=== PATIENT | male | born 2000 | race Caucasian/White ===

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

== ENCOUNTER 2022-01-13 | Emergency (ER) | payer MEDICAID, SELFPAY ==
[2022-01-13 00:07] VITALS: BP 119/77; PULSE 85; RESP 16; TEMP 36.9; O2SAT 97
--- OUTSIDE RECORDS SUMMARY | 2022-01-13 00:14 | XMS_ITS | Encounter Summary ---
:2000 Author Organization [facility] Address [address] [place] [address] Care Team Providers Name Role Phone Kirsten Allred MD Primary Care Provider Reason for Visit Reason Comments Follow-up here with dad Rudolph Encounter Details Date Type Department Care Team Description 09/27/2015 Office Visit Genetics at [facility] Nikolas Ahn Chromosomal duplication; [facility] MD Marina Anxiety; [facility] ADHD (attention deficit hype ractivity disorder), combined type; [facility] Hypogenesis of corpus callosum [id number] GENETICS & CHILD [phone] DEVELOPMENT [place], [place] [address] Social History Tobacco Use Types Packs/Day Years Used Date Never Smoker Sex Assigned at Date Recorded Not on file documented as of this encounter Last Filed Vital Signs Vital Sign Reading Time Taken Comments Blood Pressure 120/67 09/27/2015 8:51 AM EDT Pulse 109 09/27/2015 8:51 AM EDT Temperature - - Respiratory Rate - - Oxygen Saturation - - Inhaled Oxygen Concentration - - Weight 41.2 kg (90 lb 13.3 oz) 09/27/2015 8:51 AM EDT Height 149.9 cm (4' 11) 09/27/2015 8:51 AM EDT Head Circumference 54.1 cm 09/27/2015 8:51 AM EDT Body Mass Index 18.35 09/27/2015 8:51 AM EDT Body Mass Index Percentile 43.88 % 09/27/2015 8:51 AM ED T Growth Chart: [facility] (Boys, 2-20 Years) documented in this encounter Patient Instructions Patient InstructionsMalathi Lomax LGC - 09/27/2015 9:02 AM EDT Lalo is a 15 y.o. boy referred to Genetics Clinic by KIRSTEN ALLRED MD for evaluation of his abnormalmicroarray. Lalo underwent chromosomal microarray analysis testing as part of his diagnostic work-upfor ADHD, developmental delays, and behavioral concerns. 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 This duplication is 418 kb in size and contains two known genes. Due to a lack of published information about this specific chromosomal variation, it has been classified as a variant of unknown significance. Information about this finding has been reviewed with the family using visual aids to describe the difference. Given this finding, we have completed a review of relevant medical literature and shared the following information with the family. Similar copy number gains have been seen in populations of normal controls and clinically affected individuals. The clinical features that have been described include mild to moderate developmental delay, intellectual disability, hypotonia, autism, and less commonly bipolar disorder, anxiety disorder, disruptive behavior disorder, and severe pica. Though Lalo has a duplication of this gene, we note that loss of the CHRNA7 gene has been suggested as a candidate gene forintellectual disability in individuals with 15q13.3 deletion syndrome. Duplications of this gene have been suggested to be a risk factor for neurodevelopmental and neuropsychiatric presentations. 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 There have been correlations suggested between single nucleotide polymorphisms in this gene with venous thromboembolism but a cause and effect relationship has not been concluded. There are no updates regarding any involvement if/how possible disruption of one copy of this gene would be concerning. At this time, while we remain unable to determine if this chromosomal variation helps account for Lalo's ADHD and developmental differences, we do continue to feel that this chromosomal difference may play a role in his neurodevelopmental and neuropsychiatric symptoms and other differences on exam andimaging. We suggest continuation of school supports for Lalo's academic work. Re-evaluation through Genetics will allow for re-assessment of this finding over time for updated counseling. Recommendations: 1. No additional genetic testing at this time. 2. Outpatient re-evaluation in 3 years. Genetic Counselor involved in case: Malathi Lomax MS, [facility] Certified Genetic Counselor [phone] EM: documented in this encounter Progress Notes Nikolas Ahn MD - 09/27/2015 9:43 AM EDT Subjective: Patient ID: Lalo Mills is a 15 y.o. male. HPI Comments: Lalo is a 15 y.o. boy with a history of ADHD, developmental delays, and behavioral concerns who was referred to Genetics Clinic by KIRSTEN ALLRED MD for evaluation of his abnormal microarray. Review of Systems ?? General: None ?? Growth/Endocrine: None ?? Eyes: None, lazy eye requiring patching. Now has glasses due to slight astigmatism, mild myopia. ?? ENT/Mouth: None ?? Heart: None ?? Respiratory: None ?? GI: Constipation/Diarrhea occasionally ?? : None ?? Musculoskeletal: Short fingers. Growing pains. ?? Integument: None ?? Neurologic: Early myoclonic jerks, possible due to GREGORY. Thin corpus callosum. ?? Psychiatric: Behavioral concerns have improved with medications. Perseverative behaviors have gone down. Anger outbursts have also improved. ADHD. They are noting increased anxiety around social situations, insects. Started with new therapist this month. ?? Allergy/Immunology: None ?? Hematologic: None Objective: Physical Exam Nursing note and vitals reviewed. ?? Constitutional: He appears well-developed and well-nourished. He is active. No distress. ?? HENT: ?? Mouth/Throat: Mucous membranes are moist. Dentition is normal. Oropharynx is clear. Nondysmorphic ?? Eyes: EOM are normal. ?? Neck: Normal range of motion. Neck supple. ?? Cardiovascular: Normal rate and regular rhythm. ?? No murmur heard. ?? Pulmonary/Chest: Effort normal. No respiratory distress. ?? Abdominal: Soft. He exhibits no mass. There is no hepatosplenomegaly. Genitourinary: Penis normal. Musculoskeletal: Normal range of motion. He exhibits no deformity. ?? 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 No cranial nerve deficit. Mild hypertonia Increased DTRs throughout Skin: Skin is warm and moist. Assessment and Plan: Lalo is a 15 y.o. boy referred to Genetics Clinic by KIRSTEN ALLRED MD for evaluation of his abnormalmicroarray. Lalo underwent chromosomal microarray analysis testing as part of his diagnostic work-upfor ADHD, developmental delays, and behavioral concerns. 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 This duplication is 418 kb in size and contains two known genes. Due to a lack of published information about this specific chromosomal variation, it has been classified as a variant of unknown significance. Information about this finding has been reviewed with the family using visual aids to describe the difference. Given this finding, we have completed a review of relevant medical literature and shared the following information with the family. Similar copy number gains have been seen in populations of normal controls and clinically affected individuals. The clinical features that have been described include mild to moderate developmental delay, intellectual disability, hypotonia, autism, and less commonly bipolar disorder, anxiety disorder, disruptive behavior disorder, and severe pica. Though Lalo has a duplication of this gene, we note that loss of the CHRNA7 gene has been suggested as a candidate gene forintellectual disability in individuals with 15q13.3 deletion syndrome. Duplications of this gene have been suggested to be a risk factor for neurodevelopmental and neuropsychiatric presentations. 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 There have been correlations suggested between single nucleotide polymorphisms in this gene with venous thromboembolism but a cause and effect relationship has not been concluded. There are no updates regarding any involvement if/how possible disruption of one copy of this gene would be concerning. At this time, while we remain unable to determine if this chromosomal variation helps account for Lalo's ADHD and developmental differences, we do continue to feel that this chromosomal difference may play a role in his neurodevelopmental and neuropsychiatric symptoms and other differences on exam andimaging. We suggest continuation of school supports for Lalo's academic work. Re-evaluation through Genetics will allow for re-assessment of this finding over time for updated counseling. Recommendations: 1. No additional genetic testing at this time. 2. Consider re-evaluation through PT for his hypertonia and increased reflexes 3. Outpatient re-evaluation in 3 years. Genetic Counselor involved in case: Malathi Lomax MS, [facility] Certified Genetic Counselor [phone] EM: [email or web address] 45 minutes of my 60 minute encounter with this patient was spent in face to face counseling regarding his chromosomal change. Arnoldo Lomaxhanie Gaby, [facility] - 09/27/2015 9:32 AM EDT History of Present Concerns: Lalo, a 15 y.o. male, was referred for medical genetics evaluation by KIRSTEN ALLRED MD for consultation regarding his developmental delay and behavioral concerns. He was seen for initial evaluation on 05/21/2013 at which time, Dr. Ahn ordered chromosomal microarray analysis which revealed a variant of uncertain significance. A follow-up visit on 09/03/2015 was completed where results were reviewed with the family. The adoptive father, Rudolph, raised the following questions for Dr. Nikolas Ahn: 1. Routine re-evaluation. /Medical History: History ??? Delivery Method: Vaginal, Spontaneous Delivery ??? 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 No reported alcohol or cigarette exposures. 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 Past Medical History Diagnosis Date ??? ADHD (attention deficit hyperactivity disorder) ??? Adopted ??? Behavioral problems ??? 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 Developmental delay Surgical History: No past surgical history on file. Developmental History: ?? Milestones: ?? Late walker (18-20 months) and late talker ?? Services/Schooling: ?? Followed through [employer] [facility] for global DD early on. ?? Lalo is currently in 7th grade. He was on an IEP until second grade but it was d/c after the family moved to [place]. He is back on an IEP as of 5th grade. Academically, he is about 1+ grade levels behind. Does grade level math. Struggles more with reading and writing. ?? Neuropsych evaluation with Dr. Vega at [facility] completed on 08/19/2013, no report yet posted toeDH. Kenneth stated that they noticed focus issues. With the anger outbursts, he suggested child psychiatry involvement in med management. He will be seen in [facility] next week. Specific recommendations were made for changes in IEP including reading help and OT for fine motor deficits. IQ score in the low normal range and was consistent with his last testing according to the school. ?? [facility] about six months ago. Diagnosed with unspecified mood disorder, unspecified anxiety disorder, ADHD combined type, disruptive mood dysregulation disorder. They have used this information to update goals in Lalo's IEP at school. Social History: History Social History Narrative Initially placed in foster care as a , Lalo moved in with his adoptive fathers, Rudolph and Morris at 4y 3m and was adopted at age 6 years. His adoptive fathers are no longer together and he primarily resides with Rudolph and his partner, Kenneth, and a younger adopted sibling. Morris also remains involved and the boys reside with him about 40% of the time. Family History: ?? There is very little information available on biologic parents. Mother was thought to be rather normal in functioning but had a drug abuse issue. Parent report the following medical symptoms in patient: ?? General: None ?? Growth/Endocrine: None ?? Eyes: None, lazy eye requiring patching. Now has glasses due to slight astigmatism, mild myopia. ?? ENT/Mouth: None ?? Heart: None ?? Respiratory: None ?? GI: Constipation/Diarrhea occasionally ?? : None ?? Musculoskeletal: Short fingers. Growing pains. ?? Integument: None ?? Neurologic: Early myoclonic jerks, possible due to GREGORY. Thin corpus callosum. ?? Psychiatric: Behavioral concerns have improved with medications. Perseverative behaviors have gone down. Anger outbursts have also improved. ADHD. They are noting increased anxiety around social situations, insects. Started with new therapist this month. ?? Allergy/Immunology: None ?? Hematologic: None Testing: Prior to today's appointment the following studies were completed: Labs: ?? Chromosomal microarray analysis: RESULTS: GAIN of 418 kb from 15q13.3 of UNCERTAIN clinical significance (CHRNA7, OTUD7A) Sex: Male arr[hg19] 15q13.3(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 Similar copy number gains have been reported in both the normal population and in individuals with various clinical features including mild to moderate developmental delay, intellectual disability, hypotonia, autism and less commonly bipolar disorder, anxiety disorder, disruptive behavior disorder, and severe pica (Szafranski 2010). Larger 15p13.3 duplications (BP4-BP5, ~1.3 Mb) have been shown to be enriched in patient populations (Sharon 2011) while an increased frequency of smaller duplications (similar to the one detected in this patient) in affected versus control populations has not been established but the control populations are generally not screened to exclude some of the less severe phenotypes mentioned above. This region is of interest due to the established association of 15q13.3 deletions (OMIM 556445) with various neurological disorders. The loss of the cholinergic receptor, nicotinic, alpha 7 (neuronal)gene (CHRNA7; OMIM 052868), which is included in the affected region of this patient, may be involved in the pathogenicity of those deletions. Duplications including CHRNA7 were the focus of a recent publication that suggests the increased dosage of this gene may result in an imbalance of neuronal homeostasis that could predispose individuals to various neurodevelopmental and neuropsychiatric phenotypes (Vivkei 2010). If duplications involving CHRNA7 are clinically significant, it is likely a risk factor that must co-exist with other genetic and/or environmental factors to produce a clinical phenotype. Insufficient evidence exists to rule out the possibility that this duplication is benign and, therefore, this finding is currently of UNCERTAIN clinical significance. This duplication also includes the first exon of the OTUD7A gene (OMIM 297266). A recent genome-wideassociation study identified borderline significance of a single nucleotide polymorphism at or near OTUD7A in a population of individuals with venous thromboembolism, suggesting it as a possible candidate gene for VTE (Jhon, et al. 2013). Clinical correlation is required and a genetics referral is recommended for further interpretation and consideration of parental testing. For [facility] genetics referrals call ([phone]). GENES CONTAINED WITHIN THE IDENTIFIED REGION: CHRNA7, OTUD7A Radiology: ?? Brain MRI (09/2002, [place]): Diffusely thin corpus callosum. Other: ?? 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
--- OUTSIDE RECORDS SUMMARY | 2022-01-13 00:14 | XMS_ITS | Encounter Summary ---
:2000 Author Organization [facility] [place] [address] Care Team Providers Name Role Phone Kirsten Allred MD Primary Care Provider Reason for Visit Reason Comments Follow-up Encounter Details Date Type Department Care Team Description 09/03/2013 Follow[place]Up [place] [facility] Kayla Ahn ADD (attention deficit disor ofelia) (Primary Dx); [facility] [address] [place] [address] [address] [phone] [facility]EL[facility] [place] [id number] (Wo rk) Social History Tobacco Use Types Packs/Day Years Used Date Never Assessed Sex Assigned at Date Recorded Not on file documented as of this encounter Last Filed Vital Signs Vital Sign Reading Time Taken Comments Blood Pressure - - Pulse - - Temperature - - Respiratory Rate - - Oxygen Saturation - - Inhaled Oxygen Concentration - - Weight 40.8 kg (90 lb) 09/03/2013 9:07 AM EDT Height 141.6 cm (4' 7.75) 09/03/2013 9:07 AM EDT Head Circumference 53.3 cm 09/03/2013 9:07 AM EDT Body Mass Index 20.36 09/03/2013 9:07 AM EDT Body Mass Index Percentile 84.45 % 09/03/2013 9:07 AM ED T Growth Chart: CDC (Boys, 2-20 Years) documented in this encounter Patient Instructions Patient InstructionsFloraleMalathi owens MS - 09/03/2013 10:15 AM EDT Lalo is a 13 y.o. boy referred to Genetics Clinic by [...] of unknown significance. Information about this finding was reviewed with the family using visual aids to describe the difference. Given this finding, we have completed a review of relevant medical literature and shared the following information with the family. Similar copy number gains have been seen in populations both of normal controls and clinically affected individuals. The clinical features that have been described include mild to moderate developmental delay, intellectual disability, hypotonia, autism, and less commonlybipolar disorder, anxiety disorder, disruptive behavior disorder, and severe pica. 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 Duplications of this gene have been suggested to be a risk factor for neurodevelopmental and neuropsychiatric presentations. 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 There have been correlations suggested between single nucleotide polymorphisms in this gene with venous thromboembolism but a cause and effect relationship has not been concluded. At this time, while the laboratory is unable to determine if this chromosomal variation helps account for Lalo's ADHD and developmental differences, we do feel that it may play a role in his neurodevelopment and neuropsychiatric symptoms. Additional time is required to determine if this chromosomal variation can be better classified over time by increasing knowledge in the medical literature. 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 He is also appropriately establishing care with Child Psychiatry which will be helpful and necessary for early identification and management of psychiatric symptoms if they occur. Re- evaluation through Genetics will allow for re-assessment of this finding over time for updated counseling. Recommendations: 1. No additional genetic testing at this time. 2. Outpatient re-evaluation in 2 years. Genetic Counselor involved in case: Malathi Lomax MS, [facility] Certified Genetic Counselor [phone] EM: [email or web address] documented in this encounter Progress Notes Kayla Ahn MD - 09/03/2013 10:35 AM EDT Subjective: Patient ID: Lalo Mills is a 13 y.o. male. HPI Comments: Lalo is a 13 y.o. boy referred to Genetics Clinic by KIRSTEN ALLRED MD for evaluation of his abnormalmicroarray. Lalo underwent chromosomal microarray analysis testing as part of his diagnostic work-upfor ADHD, developmental delays, and behavioral concerns. He returns to clinic today for evaluation and counseling. Review of Systems Eyes: History of lazy eye requiring patching Gastrointestinal: Positive for constipation (occasional). Neurological: Global developmental delay Thin corpus callosum on MRI Psychiatric/Behavioral: Positive for behavioral problems. ADHD All other systems reviewed and are negative. Objective: Physical Exam Nursing note and vitals reviewed. Constitutional: He appears well-developed and well-nourished. He is active. No distress. HENT: Mouth/Throat: Mucous membranes are moist. Dentition is normal. Oropharynx is clear. Nondysmorphic Eyes: EOM are normal. Neck: Normal range of motion. Neck supple. Cardiovascular: Normal rate and regular rhythm. No murmur heard. Pulmonary/Chest: Effort normal. No respiratory distress. Abdominal: Soft. He exhibits no mass. There is no hepatosplenomegaly. Genitourinary: Penis normal. Musculoskeletal: Normal range of motion. He exhibits no deformity. 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 He has normal reflexes. No cranial nerve deficit. He exhibits normal muscle tone. Coordination normal. Skin: Skin is warm and moist. Assessment and Plan: Lalo is a 13 y.o. boy referred to Genetics Clinic by [...] of unknown significance. Information about this finding was reviewed with the family using visual aids to describe the difference. Given this finding, we have completed a review of relevant medical literature and shared the following information with the family. Similar copy number gains have been seen in populations both of normal controls and clinically affected individuals. The clinical features that have been described include mild to moderate developmental delay, intellectual disability, hypotonia, autism, and less commonlybipolar disorder, anxiety disorder, disruptive behavior disorder, and severe pica. 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 Duplications of this gene have been suggested to be a risk factor for neurodevelopmental and neuropsychiatric presentations. 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 There have been correlations suggested between single nucleotide polymorphisms in this gene with venous thromboembolism but a cause and effect relationship has not been concluded. At this time, while the laboratory is unable to determine if this chromosomal variation helps account for Lalo's ADHD and developmental differences, we do feel that it may play a role in his neurodevelopment and neuropsychiatric symptoms. Additional time is required to determine if this chromosomal variation can be better classified over time by increasing knowledge in the medical literature. 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 He is also appropriately establishing care with Child Psychiatry which will be helpful and necessary for early identification and management of psychiatric symptoms if they occur. Re- evaluation through Genetics will allow for re-assessment of this finding over time for updated counseling. Recommendations: 1. No additional genetic testing at this time. 2. Outpatient re-evaluation in 2 years. 45 minutes of my 60 minute encounter with this family was spent in face to face counseling regardinghis chromosomal abnormality. Malathi Lomax, MS - 09/03/2013 10:14 AM EDT History of Present Concerns: Lalo, a 13 y.o. male, was referred for medical genetics evaluation by KIRSTEN ALLRED MD for consultation regarding his developmental delay and behavioral concerns. He was seen for initial evaluation on 05/21/2013 at which time, Dr. Ahn ordered chromosomal microarray analysis. Abnormal results were shared with familyby phone and today's follow-up visit was arranged for more detailed discussion of the findings. The adoptive father, Rudolph, raised the following questions for Dr. Kayla Ahn: 1. Follow-up of microarray results. /Medical History: History Vitals ??? Delivery Method: Vaginal, Spontaneous Delivery ??? 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 No reported alcohol or cigarette exposures. 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 Past Medical History Diagnosis Date ??? 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 Developmental delay ??? Adopted ??? Behavioral problems ??? ADHD (attention deficit hyperactivity disorder) Surgical History: No past surgical history on file. Developmental History: ?? Milestones: ?? Late walker (18-20 months) and late talker ?? Services/Schooling: ?? Followed through [employer] services for global DD early on. ?? Lalo is currently in 5th grade. He was on an IEP until second grade but it was d/c after the family moved to [place]. He is back on an IEP as of this school year. Academically, he is about 1 grade level behind. ?? Neuropsych evaluation with Dr. Vega at [facility] completed on 08/19/2013, no report yet posted toe. Kenneth stated that they noticed focus issues. With the anger outbursts, he suggested child psychiatry involvement in med management. He will be seen in [facility] next week. Specific recommendations were made for changes in IEP including reading help and OT for fine motor deficits. IQ score in the low normal range and was consistent with his last testing according to the school. Social History: History Social History Narrative Initially placed in foster care as a , Lalo moved in with his adoptive fathers, Rudolph and Morris at 4y 3m and was adopted at age 6 years. His adoptive fathers are no longer together and he primarily resides with Rudolph and his partner, Kenneth, and a younger adopted sibling. Morris also remains involved. Family History: ?? There is very little information available on biologic parents. Mother was thought to be rather normal in functioning but had a drug abuse issue. Parent report the following medical symptoms in patient: ?? General: None ?? Growth/Endocrine: Possible early pubertal changes. ?? Eyes: None, lazy eye requiring patching. Resolved. ?? ENT/Mouth: None ?? Heart: None ?? Respiratory: None ?? GI: Constipation occasionally ?? : None ?? Musculoskeletal: Short fingers. ?? Integument: None ?? Neurologic: Early myoclonic jerks, possible due to GREGORY. Thin corpus callosum. ?? Psychiatric: Behavioral concerns have worsened over last year, ADHD. Described as having a short fuse, some explosive anger and these have increased over the last couple of years. Mostly directed atyounger brother. He is somewhat obsessive in his behaviors. ?? Allergy/Immunology: None ?? Hematologic: None Testing: Prior to today's appointment the following studies were completed: Labs: ?? 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 Similar copy number gains have been reported in both the normal population and in individuals with various clinical features including mild to moderate developmental delay, intellectual disability, hypotonia, autism and less commonly bipolar disorder, anxiety disorder, disruptive behavior disorder, and severe pica (Viveki 2010). Larger 15p13.3 duplications (BP4-BP5, ~1.3 Mb) [...] the established association of 15q13.3 deletions (OMIM 439008) with various neurological disorders. The loss of the cholinergic receptor, nicotinic, alpha 7 (neuronal)gene (CHRNA7; OMIM 879091), which is included in the affected region of this patient, may be involved in the pathogenicity of those deletions. Duplications including CHRNA7 were the focus of a recent publication that suggests the increased dosage of this gene may result in an imbalance of neuronal homeostasis that could predispose individuals to various neurodevelopmental and neuropsychiatric phenotypes (Viveki 2010). If duplications involving CHRNA7 are clinically significant, it is likely a risk factor that must co-exist with other genetic and/or environmental factors to produce a clinical phenotype. Insufficient evidence exists to rule out the possibility that this duplication is benign and, therefore, this finding is currently of UNCERTAIN clinical significance. This duplication also includes the first exon of the OTUD7A gene (OMIM 891396). A recent genome-wideassociation study identified borderline significance of a single nucleotide polymorphism at or near OTUD7A in a population of individuals with venous thromboembolism, suggesting it as a possible candidate gene for VTE (Jhon, et al. 2013). Clinical correlation is required and a genetics referral is recommended for further interpretation and consideration of parental testing. For [facility] [place] referrals call (or [phone]). GENES CONTAINED WITHIN THE IDENTIFIED REGION: CHRNA7, OTUD7A Radiology: ?? Brain MRI (09/2002, [place]): Diffusely thin corpus callosum. Other: ?? 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
--- OUTSIDE RECORDS SUMMARY | 2022-01-13 00:14 | XMS_ITS | Encounter Summary ---
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); Behavioral Health at , PhD Global developmental delay [facility] [address] [facility]ia PSYCHIATRY - CHILD [place], [place] & [place] [id number] [place] [address] [phone] (Wo rk) Social History Tobacco Use Types Packs/Day Years Used Date Never Assessed Sex Assigned at Date Recorded Not on file documented as of this encounter Progress Notes Manda Salazar, PhD - 10/09/2013 1:04 PM EDT Name: Lalo Mills ID#: [id number] Date of : 2000 Age: 11-3 School: [employer] Current Grade: 5 Date of Evaluation: 08/19/2013 Handedness: Right Referred by: Bao Wheeler MD NEUROPSYCHOLOGICAL EVALUATION REPORT REASON FOR REFERRAL AND BACKGROUND Lalo is an 13-year-old male with a complicated medical history, including exposure to multiple illicit substances, global developmental delay, a diffusely thin corpus callosum, and a diagnosisof Attention- Deficit/Hyperactivity Disorder (ADHD). A variety of behavioral and learning concerns have been part of Lalo???s clinical picture since youth leader. However, issues in both of these areas have improved since recently beginning stimulant medication and a renewed Individualized EducationPlan (IEP) at school. Lalo???s rabbit dresser, Bao Wheeler MD referred him for a neuropsychological val luation to assess his level of intellectual functioning and better understand his cognitive strengths and weaknesses. Lalo was the full-term product of a vaginal delivery. was complicated for exposure to cocaine, heroin, Percocet, Demerol, and Darvon. 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 Lalo spent the first two months of life in the hospital. He was taken into DCF custody at and moved in to a medicallyspecialized foster home. All developmental milestones were delayed. Lalo began Early Intervention (EI) at three months of age. He was placed in the home of his eventual adoptive parents when he was [age]years, five months. MRI of the brain in September 2002 was significant for a diffusely thin corpus callosum. 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 Lalo has longstanding difficulties with focus and concentration, following instructions, ???zoning out,?? organization, and emotional regulation. Lalo had an Individualized Education Plan (IEP) during his early elementary school years, receiving Occupational, Physical, and Speech and Language Therapy services. While he made progress, his father reported that he remained delayed in these areas. However, when his family moved to [place] in 2009, he was determined ineligible for an IEP. His father recalled that progress continued, ???albeit slowly.?? In the fall of 2012, he was declared eligible for an IEP once again, this time under the disability category of Other Health Impairment (OHI). Special education services currently include group reading instruction (four times/week for 20 minutes), and group writing instruction (four times/week for 10 minutes). His IEP states that Lalo is reading at a 2nd grade level. Lalo is also meant to receive assistance from a beater engineer helper within his classroom every day for 30 minutes in the areas of math and language arts. Lalo???s father described his son???s learning style as ???concrete,?? as he thrives on rote learning, but has difficulty ???putting it together.?? His parents have observed the influence of this upon his social interactions. For example, when there is a conflict, Lalo always needs there to be someone to blame. Without such direction, he refuses to let go of the issue, which sometimes results in angry temper tantrums. During 3rd grade, which Lalo described as ???probably the worst year of my life,?? he had his most significant behavioral problems. He recalled his teacher being ???mean,?? and that he was constantly getting in trouble. The next year, he was enrolled in a classroom with more experienced teachers, who provided a more structured and regimented environment. According to his father,Lalo???s behavior improved ???overnight.?? 5th grade has been more successful than past years. Since Lalo???s new IEP was introduced and he wasprescribed Concerta, both parents and teachers have noticed a very positive change in his learning and behavior. Additional social concerns have been raised. While Lalo has a number of friends at school, he rarelyhas play dates. Positively, he began playing organized baseball for the first time this year. In [facility], Lalo frequently acts out against his younger brother, becoming physically and verbally aggressive. His anger often escalates dramatically, and then it is very challenging to move him away from that emotional level. For dealing with these conflicts and issues with managing anger, Lalo has startedseeing Stephanie Kwok for counseling (since May 2013). Changes in the home environment and family constellation have also occurred. Lalo???s adoptive parents last year; he sees his father, Morris, on the weekends. During the week, Lalo resides with his father, Gage, his nyxuhfh-ze-on, Kenneth, and his younger brother, who is also adopted. PREVIOUS EVALUATIONS 09/04/12, Psycho-educational Evaluation, [employer] [facility] [employer] (Roger Redding MA, MATT) Lalo was evaluated due to concerns about his classroom progress. On the WISC-IV, Lalo???s level of intellectual functioning fell in the borderline range (FSIQ=79). Core verbal and visual-perceptual functions were evenly developed and in the low average range. Auditory attention/working and graphomotorprocessing speed indices each fell at the bottom of the low average range. Skills were consistent within indices. On the WJ-III, all skills were in the low average or average range, with the exception of his writing fluency, which was impaired. Mr. Redding noted that ???Lalo struggled with his decoding skills and???to demonstrate a knowledge of sounds in our language.?? TESTS AND PROCEDURES ADMINISTERED General: Clinical Interview Review of Records General Intellectual: Mari Intelligence Scale for Children - 4th Ed. Integrated (WISC-IV) Academic Screening: Comprehensive Test of Phonological Processing (CTOPP) Test of Written Spelling - 4th Ed. (TWS-4) Test of Word Reading Efficiency (TOWRE) Attention and Executive Functions: Behavioral Rating Inventory of Executive Function (BRIEF) Hannah-Newton Executive Function Scales (D-KEFS) Martino Denckla Cancellation Test (HDCT) [place] Card Sorting Test (WCST) Perez/w Continuous Performance Test (CPT) Oral Language: [place] Naming Test (BNT) Memory: Children's [place] Verbal Learning Test (CVLT-C) Janet Complex Figure Test Fine Motor Functions Screening: Grooved Pegboard Complex Perceptual-Motor: Willie Developmental Test of Visual-Motor Integration, 6th Edition (VMI-6) Janet Complex Figure Test, copy Behavioral Ratings: Achenbach Behavior Checklists (CBCL, TRF) Child Depression Inventory (CDI-2) Multidimensional Anxiety Scale for Children (MASC-2) BEHAVIORAL OBSERVATIONS Lalo arrived to the testing session accompanied by his father and father???s partner. He presented as a healthy looking boy of average height and weight and appeared to be his chronological; grooming and dress were appropriate. Lalo was initially shy but as testing progressed he seemed to become more comfortable in the environment and at ease with the examiner. Eye contact was solid and social reciprocity was intact. Upon informal observation, gait appeared normal. No facial abnormalities or asymmetries were noted. Lalo???s speech varied in terms of fluency. Speech was choppy during most conversation, as Llao seemed to halt between words, often repeating them, as though he was unsure as to the veracity of what hehad just said. Volume was low and tone was often quite soft. He offered many pieces of spontaneous co nversation. Lalo also frequently made self-deprecating remarks regarding his performance on testing. Attention was generally adequate for the situation. At times, Lalo seemed to employ self-initiated methods for enhancing his focus (i.e., reading stimuli aloud to himself). While Lalo was not overly active, he was constantly fidgety (i.e., swinging his legs, grabbing and playing with loose items on the desktop, flipping through test booklets, etc.). Affect was often flat, but signs of an emotional range were detected. Mood was reported to be ???bored,?? but seemed somewhat depressed and mildly anxious. Formal effort measures were all within normal limits and Lalo gave no indication that he was not putting forth adequate effort on all assigned tasks. Thus, the following results are considered to be anaccurate estimate of his current level of intellectual and cognitive functioning. TEST RESULTS Note: Except for intellectual test scores, data from tests appear at the end of the report. General Intellectual: Results of the current evaluation suggest that Lalo???s level of intellectual functioning falls in the low average range. Core verbal and visual-perceptual abilities were essentially evenly developed, although his nonverbal skills were 1-point greater and fell in the average range. However, Lalo???s MARLYS was highly variable across subtests, whereas verbal skills were more consistent. While graphomotorprocessing speed was in the low average range, Lalo???s auditory attention/working memory index fellin the borderline range. In the verbal realm, performance was in the average range on expressive language tasks assessing word definitions (Vocabulary) and knowledge of social mores and societal conventions (Comprehension). Lalo???s verbal abstract reasoning skills were in the low average range (Similarities). On visual-perceptual tasks, performance was in the average range on a task of abstract reasoning with pattern recognition and completion (Matrix Reasoning), and on a task of categorical reasoning, which is a pictorialanalog to the Similarities subtest (Picture Concepts). Lalo was able to show more adept abstract conceptualization with pictures than with words. Nonverbal abstract reasoning was in the borderline range on a task of visuoconstruction (Block Design), which was likely weakened by Lalo???s poor fine-motor skills. Auditory attention/working memory and graphomotor processing speed tasks will be discussed later in the report according to their function. TABLE 1 WISC-IV: IQ Scores, Factor Scores (SS) and Percentile Rankings (%ile) SS %ile Verbal Comprehension Index (VCI) 89 23 Perceptual Reasoning Index (MARLYS) 90 25 Working Memory Index (WMI) 77 6 Processing Speed Index (PSI) 83 13 General Ability Index (GAI) 89 23 Note: SS have means of 100, s.d. of 15 TABLE 2 WISC-IV: Core Subtest Scores and Percentile Rankings (%ile) raw ss % ile VCI Similarities 16 7 16 Vocabulary 30 8 25 Comprehension 22 9 37 MARLYS Block Design 14 4 2 Picture Concepts 19 11 63 Matrix Reasoning 22 10 50 WMI Digit Span 10 4 2 Letter-Number Sequencing 15 8 25 MARLYS Coding 41 8 25 Symbol Search 17 6 9 Note: Subtest scaled scores (ss) have means of 10, s.d. of 3. Table 3 WISC-IV: Supplemental and Integrated Subtest Scores and Percentile Rankings (%ile) raw ss %ile Digit Span DS forward 5 4 2 DS backward 5 6 9 Block Design Multiple Choice 22 7 16 Note: Subtest scaled scores (ss) have means of 10, s.d. of 3. Table 4 WISC-IV: Working Memory: Longest Span Base Rates raw Base Rate % Span Longest Digit Span Forward (LDSF) 4 99.5 Longest Digit Span Backwards (LDSB) 3 94 Academic Screening: The TOWRE is a test of speeded word reading for both sight words and phonetically ???legal?? nonsense syllables and words. It is well normed and standardized and is felt to identify poorly developed decoding skills. Lalo???s performance resulted in an overall Total Efficiency score in the low average range, where both skills were evenly developed. Lalo was also administered a standardized spelling test, where overall performance was in the low average range. Grade equivalent scoring placed Lalo at a 3rd and 2nd grade level for reading and a 3rd grade level for spelling. On measures of both reading and spelling, Lalo made errors that suggested difficulty with phonological awareness, sound-symbol relationships, and poor knowledge of orthographic rules (e.g., ???nife?? for knife, ???signel?? for signal, ???/ba/-/veh/?? for bave, ???/ka/-/nap/?? for knap, ???filly?? for felly). Letter reversals and transpositions were also not uncommon (e.g., ???tuerdal?? for terrible, ???drawd?? for dord). On occasion, Lalo substituted words he could not phonetically pronounce with words that were already familiar to him (e.g., ???mist?? for meest, ???pat?? for whitaker). He also seemed to miss sounds within words (e.g., ???fowtin?? for fountain). On the other hand, rapid digit and letter naming fell in the average range with no errors (CTOPP). Executive and Attention: Executive function rating The BRIEF is a standardized rating of everyday behaviors that reflect executive functions and difficulty. It is comprised of two major factors: the Behavioral Regulation Index (BHAVNA) represents a student???s ability to shift cognitive set and modulate emotions and behavior via appropriate inhibitory control. It is a pre-cursor to appropriate metacognitive problem solving. The Metacognitive Index (FL) represents a student???s ability to cognitively self-manage tasks and monitor one???s own performance. It represents the ability to initiate, plan, organize and sustain future-oriented problem solving in working memory. Specific areas assessed include the ability to inhibit impulsive responses, adjust to changes in routines or task demands, modulate emotions, initiate problem-solving or activities, sustain working memory, plan and organize tasks or activities, organize materials, and self-monitor behavior. Parent ratings were suggestive of overall executive dysfunction, with more significant problems found in the behavioral realm. Difficulties with inhibition and controlling emotional reactivity were thefocal behavioral problem areas, while ratings implicated planning and organization and self-monitoring, as metacognitive areas of significant concern. Teacher ratings were not available at the time of this report. Short-term and working memory Short-term or span memory is the ability to retain and repeat information as it is presented; working memory implies the ability to manipulate or transform information, or to hold information while working on other information. The difference between repeating digits forward and backwards is a good example of the difference between the two. Lalo achieved a maximum forward span of 4 (extremely low) and backward span of 3 (borderline). His total scores were both in the borderline range. On another measure of working memory that required him to accurately sequence a string of numbers and letters (Letter Number Sequencing), Lalo achieved a span of 4 (borderline), which provided a score in the average range. Speed of Response On the WISC-IV, Lalo performed in the borderline range on the visual scanning task (Symbol Search) and in the average range on the support director task (Coding). On a series of visual scanning and sequencing tasks (DKEFS Iva Making Test Conditions 1, 2, 3), speed was low average to borderline. Basic mo tor speed was average. On another task of visual scanning and cognitive efficiency (HDCT), Lalo???s speed and accuracy were both within normal limits. Impulsivity While limited errors were seen on visual scanning tasks (Symbol Search, Iva Making, HDCT), impulsive errors were commonly observed on exercises that required attention, working memory, mental flexibility, and response inhibition (DKEFS Jupiter Test, WCST, CPT K Test). Vigilance and sustained attention The computerized CPT is a test of sustained attention. On the first task (K test), the subject must respond to a specific letter, randomly presented on the computer screen. The second task (AK test) provides a warning cue not available in the first task. Lalo???s performance on the K test was intact, with the exception of commission errors (impulsive), as omission errors, response time, and variability were all within normal limits. Performance on the AK test improved in all categories, including the reduction of commission errors. It appeared that Lalo???s inhibitory control was aided significantly by the presence of a stimulus cue, which primed him for the target and helped harness his focus. Problem Solving, Cognitive Flexibility and Shifting The WCST is a test of nonverbal problem solving that requires the individual to select strategies for sorting cards by categories, and then adjust their strategy when the rules are changed. Lalo struggled significantly to readily grasp the task???s concept, as he required an abnormally large number oftrials to complete his first category. While Lalo was able to eventually solve for 3 out of a possible 6 category sorts, along the way, over 50% of his responses were incorrect. Further, he was markedly perseverative in his responding (i.e., getting stuck on one category, making the same mistake over and over), and failed to incorporate examiner feedback in order to switch or attempt to find a different principle. On a task of spatial planning and problem solving, Lalo earned an overall average range score (DKEFSTower Test). However, he was unable to complete the towers in an efficient manner (Move Accuracy Ratio: borderline). Lalo demonstrated some difficulties with the planning aspect of the task as it was no t uncommon to observe him ???backtracking?? in order to eventually solve an item. This cost him time as well, and a number of items were discontinued due to time limits. As discussed earlier, impulsivity played a role in his performance here, as Lalo was unable to follow the task???s prescribed rules, making similar violations multiple times (borderline). As previously mentioned, on the WCST, Lalo???s perseverative response rate was in the impaired range. When asked to make a trail alternating between numbers and letters (DKEFS Iva Making Test Condition 4), Lalo???s performance was in the borderline range, but was not significantly discrepant from baseline measures. Oral Language: Confrontational naming was in the borderline range, where phonemic cues were unhelpful (BNT; 3/20). In contrast, performance on WISC-IV verbal subtests was all in the low average range or better, wherehe did not appear to have difficulty with retrieving verbal information. For example, Lalo was able to adequately define words in isolation and also expand upon initial responses when asked to do so (Vocabulary). Memory and Learning: Verbal memory The list learning task (CVLT-C) is a learning and memory task in which the subject listens to a 15-item list, and repeats as many items as possible for 5 trials. After a distracter list is presented, delayed recall trials (with and without cueing) are presented, followed by a recognition trial. Lalo repeated 5 items following the first presentation of the list suggesting a below average initial attention span; however, his distracter list recall was above average (8 items). He showed immediate benefit from repetition, as recall improved over the next two trials. However, recall then declined and hit a plateau (5, 11, 13, 12, & 12 items). Such variability is indicative of difficulty with maintaining adequate attention over a sustained period of time. Performance was also noteworthy for a significant number of repetitions. Overall acquisition was in the high average range, which may have been aided by the semantic clustering strategy he automatically enacted for encoding list words. Recall was intact for the initial list items at both short and long delay time points. Cueing was not particularly helpful. Recognition was average, as was Lalo???s ability to discriminate between words from the list and distracter items. Taken altogether, Lalo???s immediate attention, acquisition, recall, and encoding and storage of verbal information were within normal limits. However, difficultieswith sustained attention and response inhibition could make learning difficult at times. Nonverbal memory Lalo was asked to reproduce a complex figure (Janet) from memory at immediate and delayed time intervals. Performance was borderline on each trial, and recognition recall was impaired. These results suggest problems with both retrieval and object memory for visual information. Lalo did not implement any particular strategy in his original copy of the complex figure, which likely had a negative effect upon his memory of the figure???s details. His recall of the image was also distorted spatially and had been rotated 90 degrees. Fine Motor Function Screening: Lalo was administered the Grooved Pegboard in order to assess fine motor speed and coordination. This task required him to place small pegs into a pegboard by aligning peg grooves with grooves in the pegboard, using each hand individually. Performance was severely impaired bilaterally, where two dropswere observed with his nondominant hand. Complex Perceptual - Motor Skills: When asked to copy geometric designs and shapes of increasing complexity, Lalo???s performance was in the borderline range. His copy of a complex figure drawing revealed an approach that was very part-oriented and disorganized. He rotated the paper on which he was drawing and attempted to copy the image in an orientation not congruent with the stimulus. Some elements of the drawing were severely distorted and may have reflected both Lalo???s weak visual-motor skills and poor sustained attention. He was very slow in his execution, exceeding the 10-minute time limit for his completion of his copy; thus he might have lost focus towards the end of his attempt. Although the final copy shared some simila rities with the stimulus, Lalo???s lacking concept of the image???s Gestalt resulted in an impaired performance. Behavioral Ratings: The Child Behavior Checklist (CBCL) is a parental questionnaire that gathers information about a child???s activities, social relations, and school performance. On the CBCL completed by Lalo???s stepfather, Total and Externalizing Problems were in the clinically significant range, while Internalizing Problems were in the borderline clinical range. Specific difficulties were rated in the areas of anxiety, attention, aggression, and oppositional behavior. The Teacher Rating Form (TRF) was not available at the time of this report. Lalo completed the CDI-2 and the MASC-2 in order to assess current symptoms of depression and anxiety. His responses indicated a significantly depressive experience, manifested as emotional problems, poor self-esteem, and difficulty with effective execution in everyday functioning. Anxiety also appears to be an area of concern for Lalo, as features of generalized anxiety, social anxiety, and somatization were also significantly endorsed. SUMMARY AND RECOMMENDATIONS Lalo is an 13-year-old with a complicated medical history, including in uterine exposure to drugs, developmental delay, a diffusely thin corpus callosum, and ADHD. Lalo???s rabbit dresser, Bao Wheeler, MDreferred him for a neuropsychological evaluation to assess his level of intellectual functioning andbetter understand his cognitive strengths and weaknesses. Lalo???s core level of intellectual functioning fell in the low average range. Core verbal and visual-perceptual skills were comparable (low average and average), and graphomotor processing speed was in the low average range. Auditory attention/working memory fell in the borderline range. Lalo???s inte llectual functioning appears to be stable, as performance one year ago was not significantly different. On neuropsychological testing, performance was consistent with an attention deficit, in the context of more complex neurological deficits, including reading and visual-motor integration problems. Lalo evidenced limited short-term attention and working memory capacity, which enhanced his level of difficulty on a number of tasks throughout testing. And although sustained attention appeared intact on some tasks, he did not always rise to the occasion when the maintenance of consistent attention was required. Executive functioning was generally problematic, as he struggled with initiation, impulse control, working memory, speed of response, cognitive flexibility, novel problem solving, planning and organization, and self-monitoring. Parent ratings of executive functions also indicated concern. Academic screening tests indicated that Lalo is struggling with basic reading/spelling skills, such as sound-symbol identification, phonological awareness, and knowledge of orthographic rules. Learning and memory was sound in the verbal realm, but impaired for visual material. Lalo tends to approach tasks slowly and deliberately to ensure an accurate performance. However, he either utilizes problematic strategies or other cognitive issues run interference, such as difficulties with visual scanning, impulse control, and working memory. Across a number of visual and visual-motor tasks, Lalo seemed unable to hold a mental representation of the stimuli in his head while completing them, which might be related to his corpus callosum abnormality. This made it particularly difficult to be cognitive efficient on such exercises. His struggles with executive functions, namely cognitive flexibility, perseveration, self-monitoring, and planning/organization, may also be causing problems in the emotional realm. Just as Lalo finds it difficult to adjust to cognitive demands, he likely faces the same challenge when he escalates with anger. Once his emotional boiling point has been crossed, it is hard to shift him away from that state of mind. Further, Lalo is a detail-oriented thinker, who gravitates towards a local focus, as opposed to seeing the broader context of a situation. With this mindset, it is easy to understand how hebecomes quickly fixated on something that bothers him and then struggles to let it fall into the background. Overall, Lalo???s prognosis for success appears positive. IQ scores appear stable, which is encouraging considering his abnormal MRI findings, history, and developmental delay. Lalo demonstrated the ability to learn verbal information effectively, but will always benefit from enhanced structure and support. According to his parents, Lalo has made significant progress in past year. That trend should continue with the proper continued assistance and additional recommendations. However, special attention should be paid to Lalo???s emotional experience, as self-report was suggestive of poor self-e steem, anxiety, and marked depressive symptomology. We are recommending that Lalo and his family considering working with a psychiatrist for medication management on account of his complex medical background, the presence of emotional tantrums, possibledepression, psychosocial stressors, and ADHD. Lalo???s response to medication should be closely monitored and adjusted according to his response. In concert with medication management, Lalo should continue attending counseling, where the focus may be placed on developing strategies for planning/organization, emotion identification, and any complications surrounding living in two different households.Coping skill development should be another priority, as Lalo will benefit from cognitive techniques to manage his feelings of anxiety and depression. At school, attendance at social-skills gropu (i.e.,[employer]) will also be helpful to promote pro-social behaviors and enhance social communication skills. His counselor can also assist Lalo in developing skills and strategies to enhance attention, workingmemory, and improve planning/organization, such as self-talk or writing ideas down before moving on to something new. Alternatively, computerized working memory training programs, such as [employer]og[employer], have been shown to improve students??? working memory. On screening tests of reading, Lalo demonstrated problems with phonological awareness, sound-symbol identification, and orthographic knowledge. Thus, he will require a more in-depth assessment that addresses his difficulties with these basic literacy skills. He will likely require intensive, direct ins truction (one-on-one, at least 45 minutes per day, 5 days/week) in these areas in order to improve his reading ability and not fall behind academically. Additionally, Lalo appears to require significant remediation with both visual skills and fine-motor functioning. On testing, fine-motor speed, coordination, visual-motor integration, and visual scanning problems were detected. We are recommending that he be re-evaluated by the Occupational Therapy team at his school, as Lalo???s delayed skills appear to still be interfering with his academic performance. In school, improve strategies for approaching problems - teachers should provide advanced organizersor send home the coming week???s lessons plan, this way Lalo will be able to preview assignments andtopics to better prepare - Lalo should always be encouraged to see the forest for the trees, as he is too easily hung up on concrete details, which alters his ability to function effectively There are a number of ways to help improve Lalo???s success in the classroom: 1. Due to difficulties with sustained attention, short breaks are recommended to allow Lalo to re-focus. 2. Lalo will perform best when structure is provided for him, especially when tasks are novel in nature. 3. ???Advance organizers??? from his teachers will better prepare him for the coming in-class topics. 4. Teachers should always be sure that Lalo is looking at them before they provide him with instruction to ensure they have his attention. 5. Seating in the classroom away from distractions will be helpful. 6. Lalo will always learn best when he is directly involved in the activity and when classrooms haveroutines and clear expectations. 7. Positive feedback and reinforcement from his teachers will enhance his learning and help boost self-esteem. 8. Lalo struggled with visual scanning skills on testing. Therefore, increasing the organization andstructure of visual materials may be beneficial. For example, underlining or highlighting directions, keywords, etc., and blocking out the specific work to be done may help. Color-coding or underliningerrors will make them easier to identify. 9. Due to difficulties with visual-motor integration, activities like note taking may result in sometimes missing crucial pieces of information. If his note taking is inaccurate, he should be provided with a written copy of all information that students obtained from the board. 10. Try to minimize frustration. Students with learning problems are easily overwhelmed as the demands of school increase each year. Pressure and fatigue can further exacerbate his learning problems. 11. Provide positive corrective feedback immediately after Lalo engages in both on and off task behavior to reinforce appropriate behaviors. 12. Lalo will learn best when information is presented with rote repetition. Break longer pieces of information down into smaller segments to allow for better digestion of material. 13. Lalo???s parents and teachers should work with him in developing an approach for tasks prior to starting it. Also, encourage verbalization of his strategies to enhance self-awareness. A consistent problem-solving approach that is modeled and reinforced would be very helpful, such as the Xjum-Quuw-Ur-Review system. 14. Encourage Lalo to ???see the forest for the trees,?? by calling attention to thematic content in both verbal and visual information Thank you for referring Lalo for a neuropsychological evaluation. Please contact us if you have any questions. Randy Adan Psy.D., Post-Doctoral Fellow Calin Conley, Ph.D., ABPP [facility] [place] Licensed Psychologist, #[id number] [place] Psychologist Doctorate, #[id number] This report was prepared by Randy Adan Psy.D., Postdoctoral Fellow in Pediatric Neuropsychology under the supervision of Alex Conley, Ph.D, ABPP and Manda Salazar, Ph.D., ABPP, Director, Neuropsychology Program. DATA TABLES DESCRIPTOR Z - Score M = 0, SD = 1 Percentile Rank Very Superior 2.0 and above 98 and above Superior 1.3 to 1.99 91 to 97 High Average 1.09 to 1.29 86 to 90 Average -1.0 to 1.0 15 to 85 Low Average -1.3 to -1.1 10 to 14 Borderline -2.01 to -1.4 2 to 9 Extremely Low -2.1 and below 1.9 and below Mildly Impaired - 2.69 to -2.1 0.38 to 1.9 Moderately Impaired -3.09 to -2.7 0.13 to 0.37 Severely Impaired -3.1 and below 0.12 and below NOTES: Standard scores (SS) have means of 100, and standard deviations of ?? 15; Scaled scores (ss) have a mean of 10, and standard deviations of ?? 3. T-Scores have means of 50, and standard deviations of ?? 10; Z-scores have means of 0, and standard deviations of ?? 1. TOWRE raw score SS % ile Sight Word Efficiency 62 84 14 Phonemic Decoding Efficiency 26 83 13 Total Efficiency 167 83 13 TWS-4 16 86 17 raw score %ile BNT 40 Z = -1.43 7 CTOPP Rapid Naming Composite 20 SS = 100 50 Rapid Digit Naming 29 10 50 Rapid Letter Naming 31 10 50 Parent report Teacher 1 report Teacher 2 report BRIEF T-Score %ile T-Score %ile T-Score %ile Inhibit 68 95 Shift 48 57 Emotional Control 83 >99 Behavioral Regulation Index 71 96 Initiate 53 73 Working Memory 62 91 Plan/Organize 65 91 Organization of Materials 52 65 Monitor 72 97 Metacognition Index 63 88 General Executive Composite 67 91 Note: BRIEF %justin >94 are significant, >90 of concern D-KEFS raw score ss %ile TRAIL MAKING Visual Scanning 36 7 16 Number Sequencing 64 6 9 Letter Sequencing 57 7 16 Number-Letter Switching 154 6 9 Motor Speed 34 11 63 TOWER Total Achievement Score 14 9 37 Move Accuracy Ratio 2.2 6 9 Rule Violations 7 -- 5 HDVST raw score Z-Score %ile Total Time 103 -1.15 13 Targets 25 -0.19 42 Morning Administration CPT raw score Z-score %ile K hit rate .96 -1.0 16 Omissions 6 -0.91 18 Commissions 34 -1.8 4 Average reaction time (RT) 392.81 1.24 89 Variability of RT 85.15 -0.88 19 AK hit rate .94 -0.50 50 Omissions 8 -0.62 27 Commissions 6 0.53 70 Average reaction time (RT) 302.06 0.63 74 Variability of RT 95.05 -0.85 20 WCST raw score SS %ile Categories 3 -- >16 Error percent 53 76 5 Perseverative error percent 38 68 2 Loss of set 1 -- >16 CVLT-C raw score Z-score %ile Total Acquisition 53 T = 57 75 Trial 1 5 -1.0 16 Trial 2 11 - - Trial 3 13 - - Trial 4 12 - - Trial 5 12 0.5 50 Primacy 30 0.0 50 Middle 47 1.0 84 Recency 23 -1.0 16 Semantic Clustering 1.80 1.0 84 Serial Clustering .50 -1.0 16 Distractor List 8 1.0 84 Short Delay Free Recall 11 0.5 50 Short Delay Cued Recall 12 0.5 50 Long Delay Free Recall 12 0.5 50 Long Delay Cued Recall 12 0.5 50 Recognition 15 1.0 84 Discriminability 100.00 1.0 84 Note: CVLT-C Z-scores of +/-1.5 or less are considered clinically significant JANET raw score T-score %ile Copy 14 -- <1 Immediate 12.5 33 4 Delayed 12.5 33 4 Recognition 17 28 1 raw score Z-score %ile GROOVED PEGB[place]ARD Dominant hand 119 -6.13 <1 Non-Dominant hand 160 -10.12 <1 VMI-5 raw score ss %ile VMI 20 80 9 Parent CBCL Teacher 1 TRF Teacher 2 TRF ACHENBACH T-score %ile T-score %ile T-score %ile Scales Anxious/Depressed 67 96 Withdrawn/Depressed 54 65 Somatic Complaints 50 <50 Social Problems 62 89 Thought Problems 64 92 Attention Problems 66 95 Rule-Breaking Behavior 64 92 Aggressive Behavior 76 >97 Factors Internalizing Problems 61 87 Externalizing Problems 72 >98 Total Problems 70 98 DSM-Oriented Scales Affective Problems 63 90 Anxiety Problems 65 93 Somatic Problems 50 <50 ADHD Problems 60 84 Oppositional-Deviant 70 >97 Conduct Problems 70 >97 CBCL/TRF: for Scales & DSM Scales, %justin >98 are significant, %justin >95 of concern; for Factors, %justin >90 are significant, %justin >80 of concern CDI-II raw score T-Score Total 22 73 Emotional Problems 9 66 Negative Mood/Physical Symptoms 4 58 Negative Self-Esteem 5 73 Functional Problems 13 79 Ineffectiveness 11 82 Interpersonal Problems 2 60 Interpretations for the CDI-II T-Score Overall Symptoms 70 or Above Very elevated 69-65 Elevated 64-60 High Average <59 Average MASC-II Total 65 56 Separation Anxiety/Phobias 7 47 General Anxiety Disorder Index 16 62 Social Anxiety Total 20 67 Humiliation/Rejection 10 61 Performance Fears 10 71 Obsessions/Compulsions 11 57 Physical Symptoms Total 15 61 Panic 10 65 Tense/Restless 5 54 Harm Avoidance 11 40 Interpretations for the MASC-II T-Score Overall Symptoms 70 or Above Very elevated 69-65 Elevated 64-60 Slightly Elevated 59-55 High Average < 54 Average documented in this encounter Plan of Treatment Not on filedocumented as of this encounter Visit Diagnoses Diagnosis 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
--- OUTSIDE RECORDS SUMMARY | 2022-01-13 00:14 | XMS_ITS | Encounter Summary ---
:2000 Author Organization [facility] [address] Care Team Providers Name Role Phone Bao Wheeler MD Primary Care Provider Reason for Visit Reason Onset Date Comments Results 07/01/2013 Array Encounter Details Date Type Department Care Team Description 07/01/2013 [place]phone [place] [facility] [place]omax, Results (Array) [facility] [place] [address] [facility] [phone] GENETICS & CHILD DEVELOPMENT [place] [id number] (Wo rk) Social History Tobacco Use Types Packs/Day Years Used Date Never Assessed Sex Assigned at Date Recorded Not on file documented as of this encounter Miscellaneous Notes Telephone Encounter - Malathi Lomax MS - 07/01/2013 9:12 AM EDT GENETICS - LAB FOLLOW-UP Lalo Mills 2000 [id number] Provider: Malathi Lomax MS, [facility] [place] ([id number]) Reason for contact: Discuss results from studies ordered following Lalo's genetics consultation withDr. Kayla Ahn. The results summarized in this note were reviewed by Dr. Ahn and I reviewed the results with Rudolph by phone. I explained that Lalo was found to have a copy number variant on his microarray testing. We briefly reviewed this finding and a follow-up appointment with Dr. Ahn was offered. The family will return for re-evaluation on September 03, 2013 at 10:00 am. There are no interim testing or management recommendations from Dr. Ahn. Malathi Lomax MS, [facility] [place] Certified Genetic Counselor [phone] EM: [email or web address] Telephone Encounter - Malathi Lomax MS - 07/01/2013 9:11 AM EDT The following lab results are now complete and will be reviewed with the family: ?? 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 Similar copy number gains have been reported in both the normal population and in individuals with various clinical features including mild to moderate developmental delay, intellectual disability, hypotonia, autism and less commonly bipolar disorder, anxiety disorder, disruptive behavior disorder, and severe pica (Dorene 2010). 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 The loss of the cholinergic receptor, nicotinic, alpha 7 (neuronal)gene (CHRNA7; OMIM 019193), which is included in the affected region [...] first exon of the OTUD7A gene (OMIM 589061). A recent genome-wideassociation study identified borderline significance of a single nucleotide polymorphism at or near OTUD7A in a population of individuals with venous thromboembolism, suggesting it as a possible candidate gene for VTE (Jhon, et al. 2013). Clinical correlation is required and a genetics referral is recommended for further interpretation and consideration of parental testing. For [facility] [place] call ([phone]). 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
--- OUTSIDE RECORDS SUMMARY | 2022-01-13 00:14 | XMS_ITS | Clinical Summary ---
:2000 Author Organization [facility] Address [address] [place] [id number] Care Team Providers Name Role Phone Unknown Primary Care Provider Unavailable Allergies No known active allergies Medications Medication Sig Dispensed Refills Start Date End Date Status methylphenidate Take 1 tablet 30 tablet 0 07/05/2015 Active (CONCERTA) CR 54 mg by mouth every tablet morning. FLUoxetine (PROZAC) 20 Take 1 capsule 30 capsule 1 08/12/2015 Active mg Capsule by mouth daily. 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 Social History Tobacco Use Types Packs/Day Years Used Date Never Smoker Sex Assigned at Date Recorded Not on file Last Filed Vital Signs Vital Sign Reading [...] 09/27/2015 8:51 AM ED T Growth Chart: CDC (Boys, 2-20 Years) Plan of Treatment Health Maintenance Due Date Last Done Comments Covid-19 Vaccine (#1) 2007 HPV vaccine (1 - Male 2-dose series) 2013 HIV screen 2020 Hepatitis C Screening 2020 Tdap adult 2021 Tetanus vaccine 2021 Influenza (Flu) vaccine ( of - Influenza standard 12/21/2021 series) Insurance Payer Benefit Plan / Subscriber ID Effective Dates Phone Addre ss Type Group MEDICAID DENTAL [id number] 2012-Estee [employer] [place] [address] [place] [address] MEDICAID [place] MEDICAID [facility] [id number] 2015-Darci [phone] [address] [place] [address] Care Teams Inspector Canvas Products Relationship Specialty Start Date End Date Unknown PCP - General 09/05/21 None
--- OUTSIDE RECORDS SUMMARY | 2022-01-13 00:14 | XMS_ITS | Encounter Summary ---
:2000 Author Organization [facility] Address [place] [id number] Care Team Providers Name Role Phone Kirsten Allred MD Primary Care Provider Reason for Visit Reason Comments Genetic Evaluation Encounter Details Date Type Department Care Team Description 05/21/2013 Office Visit Genetics at [facility] Kayla Ahn Developmental delay [facility] MD Marina (Primary Dx) [facility] [id number] GENETICS & CHILD [phone] [place] [address] Social History Tobacco Use Types Packs/Day Years Used Date Never Assessed Sex Assigned at Date Recorded Not on file documented as of this encounter Last Filed Vital Signs Vital Sign Reading Time Taken Comments Blood Pressure - - Pulse - - Temperature - - Respiratory Rate - - Oxygen Saturation - - Inhaled Oxygen Concentration - - Weight 41.3 kg (91 lb) 05/21/2013 1:32 PM EST Height 139.7 cm (4' 7) 05/21/2013 1:32 PM EST Head Circumference 54 cm 05/21/2013 1:32 PM EST Body Mass Index 21.15 05/21/2013 1:32 PM EST Body Mass Index Percentile 89.59 % 05/21/2013 1:32 PM ES T Growth Chart: CDC (Boys, 2-20 Years) documented in this encounter Patient Instructions Patient InstructionsValleMalathi owens, - 05/21/2013 1:45 PM EST Lalo is a 13 y.o. boy referred to Genetics Clinic by KIRSTEN ALLRED MD for evaluation of his ADHD, developmental delays, and behavioral concerns. His growth parameters are normal for his age. No specific syndrome is recognized that would account for this patient's findings, but the differential diagnosis for these findings would include chromosome anomalies. To carefully analyze the chromosomes, we discussed proceeding to chromosomal microarray analysis. This testing will determine if there are any significant deletions (losses) or duplications (gains) of genetic material. Recommendations (blood to be collected today): 1. Chromosomal microarray analysis (results expected in ~4 weeks) 2. We agree with the family's plan to undergo neuropsych testing later this year to ensure adequate attention to his academic issues. Genetic Counselor involved in case: Malathi Lomax MS, [facility] Certified Genetic Counselor [phone] EM: [email or web address] documented in this encounter Progress Notes Kayla Ahn MD - 05/21/2013 1:22 PM EST Subjective: Patient ID: Lalo Mills is a 13 y.o. male. HPI Comments: Lalo is a 13 y.o. boy with a history of ADHD, developmental delays, and behavioral concerns. He was referred to Genetics Clinic by KIRSTEN ALLRED MD for evaluation and genetic counseling. Review of Systems Eyes: History of [...] range of motion. He exhibits no deformity. Palm length 9.0 (50th %ile) Middle finger length 6.2 (`~10th %ile) MFL/total hand length (~ 10th %ile) Neurological: He is alert. He has normal reflexes. No cranial nerve deficit. He exhibits normal muscle tone. Coordination normal. Skin: Skin is warm and moist. Assessment and Plan: Lalo is a 13 y.o. boy referred to Genetics Clinic by KIRSTEN ALLRED MD for evaluation of his ADHD, developmental delays, and behavioral concerns. His growth parameters are normal for his age. No specific syndrome is recognized that would account for this patient's findings, but the differential diagnosis for these findings would include chromosome anomalies. To carefully analyze the chromosomes, we discussed proceeding to chromosomal microarray analysis. This testing will determine if there are any significant deletions (losses) or duplications (gains) of genetic material. Recommendations (blood to be collected today): 1. Chromosomal microarray analysis (results expected in ~4 weeks) 2. We agree with the family's plan to undergo neuropsych testing later this year to ensure adequate attention to his academic issues. 60 minutes of my 80 minute encounter with this family was spent in face to face counseling regardingthe differential diagnosis for Lalo's findings. . Malathi Lawton MS - 05/21/2013 1:00 PM EST History of Present Concerns: Lalo, a 13 y.o. male, was referred for medical genetics evaluation by KIRSTEN ALLRED MD for consultation regarding his developmental delay and behavioral concerns. The adoptive father raised the following questions for Dr. Kayla Ahn: 1. Here to determine if underlying cause for developmental and behavioral differences can be identified. /Medical History: History Vitals ??? Delivery Method: Vaginal, Spontaneous Delivery ??? 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 No reported alcohol or cigarette exposures. 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 Past Medical History Diagnosis Date ??? 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 Developmental delay ??? Adopted ??? Behavioral [...] was d/c after the family moved to [place]. He is back on an IEP as of this school year. Academically, he is about 1 grade level behind. IQ score unknown. ?? Neuropsych testing to completed here in July. Social History: History Social History Narrative Initially [...] the following studies were completed: Labs: ?? None Radiology: ?? Brain MRI (09/2002, [place]): Diffusely thin corpus callosum. Other: ?? None documented in this encounter Miscellaneous Notes Miscellaneous - Provider, Scanning - 06/03/2013 11:03 AM EST documented in this encounter Plan of Treatment Not on filedocumented as of this encounter Procedures Procedure Name Priority Date/Time Associated Diagnosis Comme nts INTEGRATION ASSISTANT Routine 05/21/2013 2:28 PM Developmental delay Re sults for this EST procedure are i n the results section. CHROMOSOME Routine 05/21/2013 2:28 PM Developmental delay MICROARRAY, SNP EST INTEGRATION ASSISTANT REPORT Routine 05/21/2013 2:08 PM Developmental delay Re sults for this EST procedure are i n the results section. documented in this encounter Results INTEGRATION ASSISTANT (05/21/2013 2:28 PM EST) athologist Signature INTEGRATION ASSISTANT (Result) Complete CERNER MILLENNIUM Specimen Anatomical Collection Method Collection Time Receive d Time (Source) Location / / Volume Laterality Blood specimen 05/21/2013 2:28 PM 014 2:52 (specimen) EST PM EST Resulting Agency Comment Spec In Lab Kayla Ahn MD CHEMISTRY ORDERABLES Performing Organization Address City/State/[place] [address] [facility] INTEGRATION ASSISTANT Report (05/21/2013 2:08 PM EST) Component Value Ref Test Analysis Performed At [facility] gist Range Method Time Signature Chromosome Microarray Report CERNER Microarray, MILLENNIUM SNP [facility] [place] [address] Indication for Study: ??Developmental delay Specimen: Blood Collection Date/Time: 05/21/2013 14:28 Received Date/Time: 05/21/2013 14:52 RESULTS: 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 Similar copy number gains have been reported in both the normal populatio n and in individuals with various clinical features including mild to moderate developmental delay, intellectual disability, hypotonia, aut ism and less commonly bipolar disorder, anxiety disor ofelia, disruptive behavior disorder, and severe pica (Dorene 2010). Larger 15p13.3 du plications (BP4-BP5, ~1.3 Mb) have been shown to be enriched in patien t populations (Sharon 2011) while an increased frequency of smaller duplications (similar to th e one detected in this patient) in affected versus control populat ions has not been established but the control populations are generally not sc reened to exclude some of the less severe phenotypes mentioned above. This region is of interest due to the established associatio n of 15q13.3 deletions (OMIM 451218) with various neurological diso rders. The loss of the cholinergic receptor, nicoti trey, alpha 7 (neuronal) gene (CHRNA7; OMIM 755432), which is included in the affected region of this patie nt, may be involved in the pathogenicity of those deletions. Duplications including CHRNA7 were the focus of a recent pub lication that suggests the increased dosage of this gene may result in an imbalance of neuronal homeostasis that could predispose individuals to va rious neurodevelopmental and neuropsychiatric phenotypes (Yang glasgow 2010). If duplications involving CHRNA7 are clinically sig nificant, it is likely a risk factor that must co-exist with other genetic and/or en vironmental factors to produce a clinical phenotype. Insufficient evidence exists t o rule out the possibility that this duplication is benign and, therefore , this finding is currently of UNCERTAIN clinical significance. This duplication also includ es the first exon of the OTUD7A gene (OMIM 724615). A recent genome-wide association study i dentified borderline significance of a single nucleotide polymorphi sm at or near OTUD7A in a population of individuals with venous thromboembolism, suggesting it as a possible candidate gene for VTE (Jhon, et al. 2013). Clinical correlation is required and a genetics referral i s recommended for further interpretation and c onsideration of parental testing. For [facility] genetics referrals call (or [phone]). GENES CONTAINED WITHIN THE IDENTIFIED REGION: CHRNA7, OTUD7A RELEVANT REFERENCES: Dorene Phan et al. Structures and molecular mechanisms f or common 15q13.3 microduplications involving CHRNA7: benign or pathological ? Hum Mutat. 2010 Oct;31(7):840-50. [PMID: 47058872] Sharon SORTO et al. An evidence-based ap proach to establish the functional and clinical significance of flight engineer helicopter y number variants in intellectual and developmental disabilities. Kelsie Med. 2011 Dec;13(9):777-56. [PMID: 91891 811] Jhon W, et al. ??A genome-wi de association study for venous thromboembolism: the extended cohorts for heart and aging res earch in genomic epidemiology (CHARGE) consortium. ??Kelsie Epidemiol. 2013 Oct; 37(5): 512-21. [PMI D: [id number]] This microarray uses approximately 750,000 SNP probes and 1. 9 million non-polymorphic probes to detect chromosomal gains, losses , long contiguous stretches of homozygosity (LCSHs), identity by descent and s ome forms of uniparental disomy throughout the human genome. ??Please contact the Molecular Pathology Laboratory at [facility] to request additional LCSH an alysis if needed. METHODS: ??DNA was isolated from peripheral whole blood, treated ??and hybridized to a Petflowcan HD microarray containing approximately 750,000 SNP probes and 1.9 million non-polymorphic probes designed to detect DNA abnormalities throughout the genome but specifically targeting re gions recommended by the International Standards for Cytogenomic Array (ISCA) consortiu m(1-2). ??The average spacing between probes within genes is 880 base pairs an d 384 base pairs for a set of 340 ISCA genes. ??Current medical literature along wit h several databases of copy number variants and other genomic resources were used d uring the interpretation, including: ??the ISCA consortium database, Online Mendelian Inheritance in Man (OMIM), DECIPHER, the Database of G enomic Variants. ??The information in these resources is update d regularly and current at the time of testing. ??New information not available at the time of testing may result in altered interpretation if da ta from this microarray are re-analyzed at a future date. ??The analysis of the array and nucleotide positions given are based on the human genome build GRCh37/hg19. DNA from this patient contains the following copy number trinity iants that are currently of no known clinical significance: chr3:163,[id number], copy number loss (x1) 231 kb [ [id number]] LIMITATIONS AND DISCLAIMERS: ??The test is designed to detect aneuploidy as well as gains and losses of loci represented on the m icroarray (please contact the Molecular Pathology laboratory for more details if needed). ??Low-level mosaicism, balanced translocations and h eterodisomic uniparental disomy cannot be detected by this method. ??Normal results do not rule out the diagnosis of a disorder since some abnormal ities may not be detected by this technology. ??The interpretation of the array findings are influenced by information given by the ordering clinician regarding the patient? s phenotype and clinical indications for testing. ??Information not provided to the laboratory at the time of ordering may negatively impact the inter pretation. The interpretation given is based on information available at the ti me testing was performed. ??A genetics consultation is recommended for further interpretation of these results and correlation with the patient ? s full clinical presentation and family history. This test was developed and its performance stephanie acteristics determined by the [facility] Molecular Pathology Lab oratory. It has not been cleared or approved by the U.S. Food and Drug Administration (FDA). The FDA has determi eduardo that such clearance or approval is not necessary. This test is used fo r clinical purposes. It should not be regarded as investigational or for research. This laboratory is certified unde r the Clinical Laboratory Improvement Amendments of 1988 (CLIA) as qualified to perform high-complexity clinical laboratory testing. 1. PHILLIP Hernandez, et al. Consensus Statement: Chromosomal Micro array Is a First-Tier Clinical Diagnostic Test for Individuals with Dev elopmental Disabilities or Congenital Anomalies. The [place] Oli rnal of Human Genetics (2010) 86, 984? 402. 2. https://www.iscaconsortium.org/ Note: This case was also reviewed with Dr. Brad Lee who concurs with the above interpretation. Reviewed by: Manda Blandon MD ??Telephoner, Molecular Pathology Specimen (Source) Anatomical Collection Method Collection Time Re ceived Time Location / / Volume Laterality 05/21/2013 2:08 PM EST Kayla Ahn MD CHEMISTRY ORDERABLES Performing Organization Address City/State/ZIP Code Phon e Number [place] [phone] [address] [facility] documented in this encounter Visit Diagnoses Diagnosis Developmental delay - Primary Lack of normal physiological development , unspecified documented in this encounter Care Teams Nuclear Security Officer Relationship Specialty Start Date End Date Kirsten Allred MD PCP - General 12/30/12 09/04/21 [address] [place] [address] documented as of this encounter
--- OUTSIDE RECORDS SUMMARY | 2022-01-13 00:14 | XMS_ITS | Encounter Summary ---
:2000 [place] [address] Care Team Providers Name Role Phone Bao Wheeler MD Primary Care Provider Encounter Details Date Type Department Care Team Description 08/12/2015 Office Visit Psychiatry and Ana Daley Attention deficit hyperactivity disorder (ADHD), combined type; Behavioral Health at MD ANGELITA (generalized anxiety disorder) [facility] [address] PSYCHIATRY DEPT [place] [phone] Social History Tobacco Use Types Packs/Day Years Used Date Never Assessed Sex Assigned at Date Recorded Not on file documented as of this encounter Last Filed Vital Signs Vital Sign Reading Time Taken Comments Blood Pressure 98/56 08/12/2015 3:46 PM EDT Pulse 104 08/12/2015 3:46 PM EDT Temperature - - Respiratory Rate - - Oxygen Saturation - - Inhaled Oxygen Concentration - - Weight 43 kg (94 lb 12.8 oz) 08/12/2015 3:46 PM EDT Height 149.9 cm (4' 11) 08/12/2015 3:46 PM EDT Body Mass Index 19.15 08/12/2015 3:46 PM EDT Body Mass Index Percentile 57.72 % 08/12/2015 3:46 PM ED T Growth Chart: CDC (Boys, 2-20 Years) documented in this encounter Progress Notes Orlando Peterson MD - 08/17/2015 2:27 PM EDT I have examined Lalo and interviewed his parent with Dr Daley and agree with her formulation and plan as documented. My MSE confirms hers. I agree with continued Concerta and Prozac as she has detailed along with CBT targeting anxiety. Ana Daley MD - 08/12/2015 3:43 PM EDT ESTABLISHED CHILD/ADOLESCENT PATIENT OFFICE VISIT NOTE Time Spent (minutes): 45min Attendee(s): patient and dad and dad HISTORY Chief Complaint: This is a male patient whose active problem list includes: Patient Active Problem List Diagnosis Code ??? Attention deficit hyperactivity disorder (ADHD) F90.9 ??? Behavioral problems [id number] ??? 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 ANGELITA (generalized anxiety disorder) F41.1 New problems?: none HPI: () (Brief update of main mental health symptoms, related impairments, other relevant systems info, and responses to treatment) Lalo is a 15y CM with a history of ADD and ANGELITA who was titrated up to Concerta 54mg and Prozac 20mg. Since last visit reports Concerta is helpful for focus, lasting until dinner time getting HW done, much imrpovement. Grades are 3, 2 and some 4s. In terms of anxiety and letting things go, better, taking edge off. Had loses this week, lost his cat and favorite teacher. And didn't stay in a funk about it Has some specific phobias: heights, bike riding. Discussed ERP Friend Robbie hanging out with. Which is positive Denies any over mood or anxiety symptoms. Denies medication side effects. Current Medications: Current Outpatient Prescriptions Medication Sig Dispense Refill ??? FLUoxetine (PROZAC) 20 mg Capsule Take 1 capsule by mouth daily. 30 capsule 1 ??? methylphenidate (CONCERTA) CR 54 mg tablet Take 1 tablet by mouth every morning. 30 tablet 0 No current facility-administered medications for this visit. Potential Side Effects and/or Review of Systems: (04/23/09) Psychiatric: See above Allergic/Immunological: see today's reviewed allergy list EXAM [09/28/13 bullets (incl VS)] Constitutional System ? Vital Signs (NEED AT LEAST 3 FROM AMONG HT, WT, BP, P; CAN ALSO RECORD RESPIRATORY RATE, OR SELF-REPORTED HT AND WEIGHT IF MEASURED DATA UNOBTAINABLE): Blood pressure 98/56, pulse 104, height 149.9 cm (4' 11), weight 43.001 kg (94 lb 12.8 oz)., RR: Musculoskeletal System ? Muscle Strength/Tone: No overt signs of atrophy ? Gait and Station: Normal gait and station Neurological Exam ? No tics, tremors ? Cranial nerves grossly intact with not overt assymetries Mental Status Exam This is a male patient who appears his stated age, appropriately dressed. Activity level is some fidgeting. There are no tics noted. He is pleasant and cooperative. Speech is normal in rate and volume without articulation problems. Language is normally developed. Mood is good. Affect is euthymic to anxious, full in range, and appropriate to content. Sensorium is alert and oriented to person, place,and time. Attention/concentration: intact, is able to follow the conversation. Memory, both recent and remote, are grossly intact. Fund of knowledge is average. Thought processes are goal directed, logical, and coherent with no looseness or associations or flight of ideas. He denies delusional or obsessive thoughts. There are no overt auditory or visual hallucinations observed. Denies suicidal or homicidal ideations. His insight and judgment are fair. ASSESSMENT: This is a 15 y.o. male. Diagnoses of Attention deficit hyperactivity disorder (ADHD), combined type and ANGELITA (generalized anxiety disorder) were pertinent to this visit. Formulation Notes (1-3 sentence summary of main biopsychosocial factors): Lalo is a 15y CM with a history of anxiety and ADHD on concerta 54mg and prozac 20mg. He has had some benefit from the medication and is more organized at school, wearing off around 5-6pm. Sleeping andeating well, some skipping lunch. Discussed anxiety is better on prozac 20mg and taking the edge offof things and able to talk more through stressful moments, better able to get along with brother. continues to have specific phobias, if need be can try ERP in therapy (exposure response prevention). Discussed continuing concerta and prozac for ADHD and anxiety in addition to CBT and f/u with construction administrator. Can return to clinic with any issues or concerns. The patient's current level of severity on CGI-S is (1-normal, 2-borderline mentally ill, 3-mildly ill, 4-moderately ill, 5-markedly ill, 6-severely ill, 7- extremely ill): 4 His change from our initial visit on the CGI-Improvement scale is: (1-very much improved, 2-much improved, 3-minimally improved, 4-no change, 5-minimally worse, 6-much worse, 7-very much worse): 2. PLAN: *We discussed his potential diagnoses above. *In order to clarify the diagnoses or to monitor his response to medication, we discussed obtaining rating scales from parents and teacher(s) prior to the next appointment. *continue concerta to 54mg PO qAM to better address ADHD symptoms (help with emotional impulsivity, attention, HW time) *continue prozac to 20mg for anxiety and letting things go, helping with when things are unexpected.Has room to titrate up by 10-20mg if need be for anxiety. *Please refer to medication order for details and After Visit Summary for medication instructions.?? *The parent and patient were encouraged to?? Continue CBT therapy to address the above symptoms too specifically toward anxiety and organization.?could try ERP (exposure repsonse prevention) for specific phobias if start to interfere in daily activities. *Follow up with construction administrator Instruction/Education provided: Parent/patient provided verbal or written instructions regarding theabove plan? yes Parent/patient understands the plan? yes documented in this encounter Plan of Treatment Not on filedocumented as of this encounter Visit Diagnoses Diagnosis Attention deficit hyperactivity disorder (ADHD), combined type ANGELITA (generalized anxiety disorder) Generalized anxiety disorder documented in this encounter Care Teams Rehab Trainer Relationship Specialty Start Date End Date Bao Wheeler MD PCP - General 12/30/12 09/04/21 [address] [place] [address] documented as of this encounter
--- OUTSIDE RECORDS SUMMARY | 2022-01-13 00:14 | XMS_ITS | Encounter Summary ---
:2000 [place] [address] Care Team Providers Name Role Phone Kirsten Allred MD Primary Care Provider Reason for Visit Reason Comments Anxiety Encounter Details Date Type Department Care Team Description 07/05/2015 Office Visit Psychiatry and Ana Daley Attention deficit hyperactivity disorder (ADHD), combined type; Behavioral Health MD Betsy ANGELITA (generalized anxiety disorder) [facility] [address] Tapia PSYCHIATRY DEPT [place] [phone] Social History Tobacco Use Types Packs/Day Years Used Date Never Assessed Sex Assigned at Date Recorded Not on file documented as of this encounter Last Filed Vital Signs Vital Sign Reading Time Taken Comments Blood Pressure 113/58 07/05/2015 11:10 AM EDT Pulse 93 07/05/2015 11:10 AM EDT Temperature - - Respiratory Rate - - Oxygen Saturation - - Inhaled Oxygen Concentration - - Weight 42.2 kg (93 lb) 07/05/2015 11:10 AM EDT Height 149.9 cm (4' 11) 07/05/2015 11:10 AM EDT Body Mass Index 18.78 07/05/2015 11:10 AM EDT Body Mass Index Percentile 53.31 % 07/05/2015 11:10 AM E DT Growth Chart: CDC (Boys, 2-20 Years) documented in this encounter Progress Notes Orlando Peterson MD - 07/06/2015 10:46 AM EDT I have examined Lalo and interviewed his parent with Dr Daley and agree with her formulation and plan as noted. My MSE confirms hers. I agree with gathering more information before rendering a final set of recommendations and plans as Dr Daley has noted, but to begin optimizing current medicationsfor mood and ADHD.. Ana Daley MD - 07/05/2015 9:37 AM EDT This patient was seen by and staffed by Dr. Peterson during today's visit. CHILD/ADOLESCENT DIAGNOSTIC INTERVIEW Patient Name: Lalo Mills : 2000 Encounter Date: 07/05/2015 Time Spent: 90m Location: [facility] [place], [place] at [place] Primary Care Provider: KIRSTEN ALLRED MD Referred by: pcp Information Source: Child and parent interviews and rating scales, teacher rating scales, chart review. Guardian(s): dads Identifying Information/Chief Complaint: This is a 15 y.o. male in grade 7th at [employer] who lives at [address] [place] [phone]. The parent's chief complaint is anxiety. History of Present Illness: Lalo is a 15y CM with history of ADHD on Concerta 36mg here for evaluation for anger and disruptive behaviors. He has therapist. He also has a psychiatrist who prescribes Prozac 10mg. School goes okay, reports writing is the most difficult class. Likes science and math. Live with one dad and step dad- weekdays and third weekend. Other dad sees him weekends and some weekday hours. Parents 4years ago. Anxiety: Denies OCD symptoms or PTSD symptoms. He denies anxiety, generalized worries. Parents report prior to prozac would wake up at night, clenching muscles saying couldn't sleep and was mad, but didn't know why. Summer was worried would fail 7th grade before started (new area). New, unexpected are difficult for him in general. Would get angry and scream/swear/cry and explosive behavior. With prozac edge is off. If feels wronged with perseverate on it, mis- interprets being yelled at. Anger: quick to anger, when upset can take 10-20min, 1-2x/week, mornings were the worst (before gaveconcerta). sometimes >1hour. On Prozac once per week. irritable quite often, walking on eggshells in AM (if going to be good v bad day). When upset will blame himself or say hes an awful, evil kid. Depression: he reports depressed more days than not, feeling fatigued. Denies SI. (on rating scales,denies on interview). ADHD: reports concerta wears off around 3-4pm and not giving on weekends. Skips lunch (usually good breakfast/dinner). Doesn't snack, will eat lunch but less hungry. [place] 1-2x/week to get HW done, depending on HW volume. Has to prompt constantly in mornings (get ready), forgetting needed items. Still trouble with organization at school. Psychosis: denies Denies earnest Sleep: 8:30p to 6:45am, no issues. Rating scales: one parent inattention and one teacher inattentive. ODD by one parent. Does student venetie (fundraising) and band (drums, but doesn't like it). There are otherwise no reported symptoms suggestive of lifetime diagnoses of other externalizing disorders, earnest, psychosis, anxiety, eating disorders, and drug or alcohol use disorders. Past Psychiatric History: Has psychiatrist Dr. Shari Piña Started prozac 10mg 1.5.[address] Lewis Xiong ADHD 03/2013 on concerta 36mg [facility] - CM therapist private Dhiraj Carrasco since summer, prior was yadira Kwok prior to that years. Originally started due to anger issues with younger brother. Improved when separate rooms. Past Medical History: No medical issues No medications There is no known history of a structural heart problem or syncope. There is no known history of serious head injury or seizures. Potential Side Effects and/or Review of Systems: Constitutional: Denies fatigue or sedation Cardiovascular: Denies chest pains or dizziness Musculoskeletal: Denies weakness or trouble walking GI: Denies constipation, diarrhea, nausea, or vomiting; appetite is good (sometimes skipping or lesslunch) Genitourinary: Denies dysuria, frequency of urination, or hematuria Neurological: Denies weakness, seizures, numbness, tics, or ataxia Psychiatric: See above Endocrine: Denies cold or heat intolerance, no polyuria or excessive thirst Hematologic/Lymphatic: No bruising, no recent infections Allergic/Immunological: see today's reviewed allergy list Family History: family history is not on file. Mom-depressino and BPD and drug issues. Dad: depression. LD, law and drug issues He is adopted, info is from [facility] documents. No other history known. There is no reported history of early in immediate family members, or known deaths at an earlyage that were cardiovascular in origin. Social/Developmental History: He had stacie-samantha abstinence syndrome. Unsure whole history but mom used substances and cigarettes. Admitted to use of cocaine, heroine, darvon and percocet during her . He was adopted by current family at 27months. Had 10words at 27months. Has difficulty still with tying shores and fine motor. No genetic issues. Has IEP in [place] from grade K to 1st and then 5-7th. ([place] didn't accept [place]EP grades 2-4). He was potty trained by 6y of age. Had toe walking and needed help with walking and talking which were delayed. ST/OT/PT early intervention since 3-6 months old. No ST after Kindergarten. Reading - 5th grade, writing - 3rd. Science and math concepts understands. accommodating it in his IEP. He lives with parents His relationship with parents and family is good The relationship between his parents is reportedly good Recent grades in school: fair His worst problems in school are writing. he has received special accommodations through at the the school through a IEP plan. His friendships are reportedly good His reported interests include school band, did karate in past, video games/you tube about gamers. Relevant trauma history: denies Vital Signs Blood pressure 113/58, pulse 93, height 149.9 cm (4' 11), weight 42.185 kg (93 lb). Mental Status Exam: This is a 15 y.o. male who appears his stated age. Activity level is slightly increased, at times intense shaking of legs. There are no overt tics. Speech has no articulation problems. Language development is normal. Mood is good. Affect is anxious to restricted range, no lability noted. Sensorium is alert and oriented X 4. Attention/concentration: needed prompting, slow to answer. Fund of knowledge is below average. Recent and remote memory are grossly intact. Thought processes are goal directed,logical, and coherent with no looseness or associations or flight of ideas. He denies delusional or obsessive thoughts. There are no overt auditory or visual hallucinations observed. Patient denies suicidal or homicidal ideations. His insight is limited, and his judgment is limited. Impression: (Please use a brief 3-5 sentence biopsychosocial formulation of current diagnoses and potential diagnoses, and genetic, medical, and social factors that be contributing to current presentation of symptoms): Lalo is a 15y CM with a history of anxiety and ADHD on concerta 36mg and prozac 10mg. He has had some benefit from the medication, but still struggles with organization, getting HW done, emotional impulsivity and quick to anger. He continues to struggle with having meltdowns 1-2x/week, negative cognitions, sensitive to criticism and irritability but improved on prozac. He had exposure to heroine, cocaine, substance use and has family history of depression and bipolar in mom along with depression in dad. He has had some developmental delay as a result with IEP at school and being pulled outin small groups to catch up in needed academic subjects. He has had some benefit from concerta for focus, still having trouble getting HW done and organization and emotional impulsivity. He has had some benefit from prozac, but continues to struggle with anxiety and letting things go, anger and meltdowns 1-2x/week. Discussed increasing dose of both medications as below and monitoring for improvement. Discussed continued CBT therapy for anxiety and negative cognitions. Will f/u in 6 weeks and thereafter with director of career resources. Diagnoses: Encounter Diagnoses Name Primary? Attention deficit hyperactivity disorder (ADHD), combined type ??? ANGELITA (generalized anxiety disorder) Current level of severity on CGI-S (1-normal, 2-borderline mentally ill, 3- mildly ill, 4-moderately ill, 5-markedly ill, 6-severely ill, 7-extremely ill): 4 Plan: *We discussed his potential diagnoses above. *In order to clarify the diagnoses or to monitor his response to medication, we discussed obtaining rating scales from parents and teacher(s) prior to the next appointment. *increase concerta to 54mg PO qAM to better address ADHD symptoms (help with emotional impulsivity, attention, HW time) Discussed risk/benefit/alternatives with family and patient who are amenable to starting. *after 1 week, increase prozac to 20mg (from 10mg) for anxiety and letting things go, helping with when things are unexpected. Discussed risk/benefit/alternatives with family and patient who are amenable to starting. *Please refer to medication order for details and After Visit Summary for medication instructions. *Follow up in 6 weeks. afterwhich when relatively stable return care to director of career resources. *The parent and patient were encouraged to Continue CBT therapy to address the above symptoms too specifically toward anxiety and organization. *I have encouraged this patient's parent to discuss with the school his potential eligibility for either a 504 plan or IEP to address the difficulties he is currently having academically and interpersonally in school. I believe these difficulties are due to his underlying mental health problems. They are clinically significant, potentially chronic, and may require some accommodations in the school setting for him to perform up to his academic potential. documented in this encounter Plan of Treatment Not on filedocumented as of this encounter Visit Diagnoses Diagnosis Attention deficit hyperactivity disorder (ADHD), combined type ANGELITA (generalized anxiety disorder) Generalized anxiety disorder documented in this encounter Care Teams Metal Stud Framer Relationship Specialty Start Date End Date Kirsten Allred MD PCP - General 12/30/12 09/04/21 [place] [address] documented as of this encounter
--- NOTE | 2022-01-13 00:15 | DI.CT_ITS ---
Exam(s) CT HEAD WO EXAM: CT HEAD WO CLINICAL HISTORY: fall, head trauma. TECHNIQUE: Imaging Protocol: Axial computed tomography images with coronal and sagittal reformatted images were created and reviewed COMPARISON: No exams were available for comparison FINDINGS: The ventricular system is normal in appearance. No evidence of acute intracranial hemorrhage, mass effect, or midline shift. The orbital structures are unremarkable. The temporal bone structures appear intact. Calvarium: Normal. Visualized Paranasal sinuses/Mastoids: Clear. IMPRESSION: Normal cranial CT. RADIATION DOSE DELIVERED: 689.99mGy.cm Total DLP 689.99mGy.cm Total DLP !Error CTDIvol DATA REPOSITORY: All CT scans at this facility are submitted to the National Radiology Data Registry (NRDR) Dose Index Registry (DIR) with the [employer] (ACR). RADIATION OPTIMIZATION: All CT scans at this facility use at least one of these dose optimization te chniques: automated exposure control; mA and/or kV adjustment per patient size (includes targeted exa ms where dose is matched to clinical indication); or iterative reconstruction.
--- OUTSIDE RECORDS SUMMARY | 2022-01-13 00:15 | XMS_ITS | Clinical Summary ---
:2000 Author Organization [facility] Address [address] [place] [address] Care Team Providers Name Role Phone Sandro Xiong MD Primary Care Provider [phone] Medications No known medications Social History Tobacco Use Types Packs/Day Years Used Date Never Assessed Sex Assigned at Date Recorded Not on file Plan of Treatment Not on file Insurance Payer Benefit Plan Subscriber ID Effective Phone Address Typ e / Group Dates BCBS [employer] [employer] [facility] [id number] 2021-Pres [phone] [address] Employee EMPLOYEE 7 ent [id number] Self-Insured [place], [facility] [id number] MEDICAID ACO MEDICAID ACO [id number] 2019-Pres [phone] [address] Medicaid [place] [address] [facility] [place] [id number] Care Teams Section Gang Relationship Specialty Start Date End Date Sandro Xiong MD PCP - General 02/16/15 [address] [place], [place] [id number]
--- OUTSIDE RECORDS SUMMARY | 2022-01-13 00:15 | XMS_ITS | Encounter Summary ---
:2000 Author Organization [facility] Address [address] [place] [address] Care Team Providers Name Role Phone Sandro Xiong MD Primary Care Provider [phone] Reason for Visit Reason Comments Mood Problems Encounter Details Date Type Department Care Team Description 03/07/2015 Office Visit [facility] Children's [facility] Hipolito Christiansen MD ([facility]) (Primary Psychiatry - [address] [place] [address], [address] [place] [address] [place], [place] [phone] (Wo rk) Social History Tobacco Use Types Packs/Day Years Used Date Never Assessed Sex Assigned at Date Recorded Not on file documented as of this encounter Discharge Diagnoses Diagnosis F39 Unspecified mood [affective] disorde r-F39[ICD-10-CM] documented in this encounter Discharge Disposition Disposition Code Departure Means Destination Auto Discharge documented in this encounter Plan of Treatment Not on filedocumented as of this encounter Visit Diagnoses Diagnosis Mood disorder ([facility] ([facility]) - Primary Unspecified episodic mood disorder documented in this encounter Care Teams Logistics Support Relationship Specialty Start Date End Date Sandro Xiong MD PCP - General 02/16/15 [address] [place], [place] [id number] documented as of this encounter
--- OUTSIDE RECORDS SUMMARY | 2022-01-13 00:15 | XMS_ITS | Encounter Summary ---
:2000 Author Organization [facility] Address [address] [place] [address] Care Team Providers Name Role Phone Sandro Xiong MD Primary Care Provider [phone] Reason for Visit Reason Comments Child Psychiatry Encounter Details Date Type Department Care Team Description 03/07/2015 Office Visit [facility] Vahe Anthony, Deferred diagnosis on Hospital Child PhD axis I (Primary Dx) Psychiatry - [address] [place] [address] [place], [place] [phone] (Wo rk) Social History Tobacco Use Types Packs/Day Years Used Date Never Assessed Sex Assigned at Date Recorded Not on file documented as of this encounter Discharge Diagnoses Diagnosis R69 Illness, unspecified-R69[ICD-10-CM] documented in this encounter Discharge Disposition Disposition Code Departure Means Destination Auto Discharge documented in this encounter Plan of Treatment Not on filedocumented as of this encounter Visit Diagnoses Diagnosis Deferred diagnosis on axis I - Primary Other unknown and unspecified cause of m orbidity or mortality documented in this encounter Care Teams Inbound Telemarketer Relationship Specialty Start Date End Date Sandro Xiong MD PCP - General 02/16/15 [address] [place], [place] [id number] documented as of this encounter
--- OUTSIDE RECORDS SUMMARY | 2022-01-13 00:15 | XMS_ITS | Encounter Summary ---
:2000 Author Organization [facility] Address [address] [place] [address] Care Team Providers Name Role Phone Sandro Xiong MD Primary Care Provider [phone] Reason for Visit Reason Comments Behavioral Problems Encounter Details Date Type Department Care Team Description 03/22/2015 Office Visit [facility] Children's [facility] Hipolito Christiansen MD ([facility]) (Primary Psychiatry - [address] [place] [address], [address] [place] [address] [place], [place] [phone] (Wo rk) Social History Tobacco Use Types [...] this encounter Visit Diagnoses Diagnosis Mood disorder ([facility]) ([facility]) - Primary Unspecified episodic mood disorder documented in this encounter Care Teams Glass Selector Relationship Specialty Start Date End Date Sandro Xiong MD PCP - General 02/16/15 [address] [place], [place] [id number] documented as of this encounter
--- OUTSIDE RECORDS SUMMARY | 2022-01-13 00:15 | XMS_ITS | Encounter Summary ---
:2000 Author Organization [facility] Address [address] [place] [address] Care Team Providers Name Role Phone Sandro Xiong MD Primary Care Provider [phone] Reason for Visit Reason Comments Mood Change Encounter Details Date Type Department Care Team Description 03/08/2015 Office Visit [facility] Children's [facility] Hipolito Christiansen MD ([facility]) (Primary Psychiatry - [address] [place] [address], [address] [place] [address] [place], [place] [phone] (Wo rk) Social History Tobacco Use Types [...] this encounter Visit Diagnoses Diagnosis Mood disorder ([facility] ([facility]) - Primary Unspecified episodic mood disorder documented in this encounter Care Teams Swing Tender Relationship Specialty Start Date End Date Sandro Xiong MD PCP - General 02/16/15 [address] [place], [place] [address] documented as of this encounter
--- NOTE | 2022-01-13 00:19 | ED.GENADUL_ITS ---
Discharge Plan Disposition Patient Disposition: HOME Condition: Stable Discharge Details Clinical Impression: Blunt head trauma Primary Care Provider: Sandro Xiong ED Provider: Chad Vargas Home Meds and New Rx's Prescriptions: Continued fluoxetine 20 mg capsule 20 mg PO DAILY Qty: 90 2RF Rx Instructions: 1 cap po daily methylphenidate HCl [Concerta] 36 mg tablet extended release 24hr 36 mg PO QAM MDD 36 mg Qty: 30 0RF Discharge Instructions Instructions: Concussion (ED) Additional Instructions: if you have pain you can take tylenol and ibuprofen, follow dosing instructions on the packaging follow up with your primary care provider especially if you have symptoms such as headache or issues with memory if you feel more ill, have persistent vomiting or new pain such as chest pain return to the emergency department Stand Alone Forms: Work Release Medical Decision Making 21 yo male comes in after a fall. He was at work and in the kitchen, had just mopped the floor and then while running slipped and fell back hitting his head on the tile floor. He is not sure of loc, states he laid there for a few minutes before getting up and coming here. He denies any bleeding, no chest pain, abdomen pain, back pain neck pain or extremity pain. He has pain to the posterior scalp, no midline c/t/l spine pain though has some mild tenderness over the coccyx without palpable or visible deformity. He is caox4 but states he feels off. Suspect concussion but given the fall and unclear loc will obtain ct head ct head unremarakble, he remains stable with reassuring exam and no new symptoms. Discussed concussion percautions and folllw up with pcp, return precautions given Differential Diagnosis Differential Diagnosis: concussion, tbi Imaging Data Radiologic Study: Attestation: I personally reviewed and interpreted this imaging study as follows: Imaging: CT Scan Radiologist's impression: no acute findings HPI General Mode of arrival: ambulatory . Date/Time Provider Initiated Documentation: 01/13/22 00:01 . Limitations to Documentation: no limitations . Information obtained by: patient . History of Present Illness 21 year old M presents to the emergency department with the chief complaint of head injury, described as moderate, Quality is described as aching, Patient started experiencing this minute(s) (30) and it has been constant. No relieving factors improve symptom(s), No exacerbating factors reported . Patient did receive the following treatments prior to arrival, none Related Data Home Medications Medication Instructions Recorded Confirmed fluoxetine 20 mg capsule 20 mg PO DAILY #90 caps 12/21/21 12/30/21 methylphenidate HCl 36 mg 36 mg PO QAM #30 tabs 12/21/21 01/13/22 tablet,extended release 24 hr (Concerta) Previous Rx's Medication Instructions Recorded fluoxetine 20 mg capsule 20 mg PO DAILY #90 caps 12/21/21 methylphenidate HCl 36 mg 36 mg PO QAM #30 tabs 12/21/21 tablet,extended release 24 hr (Concerta) Allergies Allergy/AdvReac Type Severity Reaction Status Date / Time No Known Allergies Allergy Verified 01/13/22 00:13 General Stated Complaint: HeadInjury DOMINIC: 3 Review of Systems All systems reviewed & are unremarkable except as noted in HPI and below Constitutional Constitutional: Denies chills, Denies fever(s) and Denies weakness Eyes Eyes: Denies loss of vision Cardiovascular Cardiovascular: Denies chest pain and Denies dyspnea Respiratory Respiratory: Denies cough and Denies dyspnea Gastrointestinal Gastrointestinal: Denies abdominal pain, Denies nausea and Denies vomiting Integumentary/Breasts Skin/Breast: Denies rash Neurologic Neurologic: Denies loss of vision and Denies weakness [facility] All Active Problems (Updated 01/13/22 @ 00:52 by Chad Vargas MD) Blunt head trauma (Acute) Vaping nicotine dependence, non-tobacco product (Acute) Mood disorder (Chronic 05/21/15) Anxiety features. [facility] autism clinic eval 03/06. Not felt to have ASD. + ADHD, mood d/o, anxiety, r/o Disruptive Mood Dysregulation disorder F/u through [facility] Generalized anxiety disorder (Chronic 06/28/16) [facility] Dx. Confirmed Dr. 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 Confirmed Dr. Cynthia goldstein 04/10 Medical History Abdominal pain, acute ER visit 01/17 for LLQ abd pain ADHD (attention deficit hyperactivity disorder) Constipation Lactose intolerance Stuttering (05/11/13) Family History Mother Mental disorder Substance abuse Depression Father Mental disorder Depression Substance abuse Social History (Updated 08/14/21 @ 09:48 by Louise Ordaz RN) Smoking/Tobacco Use Status: Current-Occasional Tobacco Type: e-cigarettes Smoking risk assessment performed?: Yes Alcohol Intake: never Counseling given: Yes Details: has had alcohol in the past. Not a regular user . Drug use: Never Substance use type: does not use Adopted: Yes Household members: family Education Level: other current occupation: [employer] Pets and animals: Yes (2 cats and a dog) Pets and animals: cat(s) and dog(s) Do you feel safe at home: Yes Do you feel safe in your relationship?: Yes Exam Const General: no acute distress Orientation: alert HENMT Head: normal to inspection Ears: external ears normal General nose exam: external nose normal Mouth: moist mucous membranes Eyes General: appearance normal, both eyes and all related structures Neck Neck: normal visual inspection Resp Effort & Inspection: normal respiratory effort and able to speak in complete sentences Cardio Rate: regular rate GI Palpation: soft and nontender Skin General skin exam: no rashes or lesions noted Neuro General: patient alert and patient oriented x3 Extrem General: normal to inspection Psych Mental Status: mental status grossly normal Course Vital Signs Vital signs: Vital Signs Temperature 36.9 C 01/13/22 00:07 Pulse 85 01/13/22 00:07 Respiratory Rate 16 01/13/22 00:07 Blood Pressure 119/77 01/13/22 00:07 Pulse Oximetry 97 01/13/22 00:07 Temperature 36.9 C 01/13/22 00:07 Temperature Source Temporal Artery Scan 01/13/22 00:07 Pulse 85 01/13/22 00:07 Respiratory Rate 16 01/13/22 00:07 Respiratory Effort 01/13/22 00:07 Blood Pressure 119/77 01/13/22 00:07 Blood Pressure Position Sitting 01/13/22 00:07 Pulse Oximetry 97 01/13/22 00:07 Oxygen Delivery Method Room Air 01/13/22 00:07 Oxygen Flow Rate 0 01/13/22 00:07 Pain Level 2 01/13/22 00:07
[2022-01-13] MEDS: Acetaminophen 500 MG TAB 1000 MG PO (00:24)
--- NOTE | 2022-01-13 00:42 | DI.VRAD_ITS ---
PROCEDURE INFORMATION: Exam: CT Head Without Contrast Exam date and time: 01/13/2022 12:33 AM Age: 21 years old Clinical indication: Injury or trauma; Other: Fall, head trauma TECHNIQUE: Imaging protocol: Computed tomography of the head without contrast. COMPARISON: CR XR CERVICAL SP ANN TRAUMA 2-3V 11/18/2019 3:02 PM FINDINGS: Brain: Normal. No hemorrhage. Unremarkable white matter. No mass effect. Cerebral ventricles: No ventriculomegaly. Paranasal sinuses: Visualized sinuses are unremarkable. No fluid levels. Mastoid air cells: Visualized mastoid air cells are well aerated. Bones/joints: Unremarkable. No acute fracture. Soft tissues: Unremarkable. IMPRESSION: No acute intracranial abnormality. Dictated and Authenticated by: Maggie Lerner MD. Ordering:ZHAO Bonilla MD
[2022-01-13 01:00] VITALS: BP 124/53; PULSE 85; RESP 16; TEMP 36.9; O2SAT 97
== END 2022-01-13 00:57 | disposition home or self-care (01) ==
PROVIDERS: Emergency Provider Emergency Medicine; PCP Pediatrics
DX: S09.90XA Unspecified injury of head, initial encounter (principal); F17.290 Nicotine dependence, other tobacco product, uncomplicated; W01.198A Fall on same level from slipping, tripping and stumbling with subsequent striking against other object, initial encounter; Y93.02 Activity, running
CPT/HCPCS: 99284; 70450; 99282

== ENCOUNTER 2024-10-24 20:00 | Emergency (ER) | payer BC, SELFPAY ==
[2024-10-24 20:02] VITALS: BP 139/88; PULSE 92; RESP 16; TEMP 36.9; O2SAT 98
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
[2024-10-24] MEDS: Diph,Pertuss(Acell),Tet Vac/Pf 0.5 ML SYR IM (20:38)
[2024-10-24] MEDS: Cephalexin 500 MG CAP PO (20:39)
== END 2024-10-24 20:41 | disposition home or self-care (01) ==
PROVIDERS: Emergency Provider Physician Assistant; PCP Family Medicine
DX: T21.24XA Burn of second degree of lower back, initial encounter (principal); X03.0XXA Exposure to flames in controlled fire, not in building or structure, initial encounter; Z59.10 Inadequate housing, unspecified; Z59.41 Food insecurity; Z60.4 Social exclusion and rejection; Z23 Encounter for immunization
CPT/HCPCS: 99283; 99284; 90471; 90715